=== PATIENT | male | born 1940 | race Caucasian/White ===

== ENCOUNTER 2018-03-03 13:36 | Emergency (ER) | payer MEDICARE, OTHER ==
[2018-03-03 13:59] VITALS: TEMP 99.1; BMI 29.2
[2018-03-03] MEDS ORDERED: METOPROLOL TARTRATE 50 MG TABLET (FP) PO ONE (15:40)
[2018-03-03] MEDS ORDERED: METOPROLOL TARTRATE 50 MG TABLET (FP) ONE (15:59)
[2018-03-03] MEDS ORDERED: ACETAMINOPHEN 1000 MG/100 ML VIAL (NON FORMULARY) IVPB ONE (16:16)
--- NOTE | 2018-03-03 16:16 | PDOC ---
History of Present Illness <Jerel Garrison - Last Filed: 03/03/18 17:07> - History of Present Illness Initial Comments: 03/03/18 16:12 "The patient is a 77 year old male with a significant PMH of HTN, hepatitis C, ascites, and prostate CA who presents to the emergency department for evaluation of dizziness and headache beginning earlier today. The patient states he intermittently has dizziness and headache, which he relates to his hypertension. Pt states that when he developed dizziness and a headache this morning, he called his home nurse. He states the nurse took his blood pressure and noted it to be high, after which she pressed the patients LifeAlert to call EMS. The patient notes he has had similar symptoms in the past on numerous occasions, all in the context of elevated BP. The patient reports compliance with his HTN medications. Pt denies thunderclap, denies neck stiffness. The patient denies chest pain, shortness of breath. Denies fever, chills, nausea, vomit, diarrhea and constipation. Denies dysuria, frequency, urgency and hematuria. Allergies: NKA Past surgical history: Cholecystectomy. TURP Social history: No reported cigarette, alcohol, or drug use. PCP: Dr. Kimmy Naqvi <Sandeep Tapia - Last Filed: 03/03/18 17:49> - General Chief Complaint: Blood Pressure Problem Stated Complaint: WEAKNESS,HTN Time Seen by Provider: 03/03/18 14:47 Past History <Jerel Garrison - Last Filed: 03/03/18 17:07> - Past Medical History Anemia: No Asthma: No Cancer: No Cardiac Disorders: No CVA: No COPD: No CHF: No Dementia: No Diabetes: No GI Disorders: Yes (GERD) HTN: Yes Hypercholesterolemia: No Liver Disease: Yes (HEPATITIS C, ENLARGED LIVE, ASCITIES) Seizures: No Thyroid Disease: No - Surgical History Cholecystectomy: Yes (CHOLECYSTECTOMY 1992, prostate vaporization) - Suicide/Smoking/Psychosocial Hx Smoking History: Never smoked Have you smoked in the past 12 months: No Information on smoking cessation initiated: No Hx Alcohol Use: No Drug/Substance Use Hx: No Substance Use Type: None Hx Substance Use Treatment: No <Sandeep Tapia - Last Filed: 03/03/18 17:49> - Past Medical History Allergies/Adverse Reactions: Allergies Allergy/AdvReac Type Severity Reaction Status Date / Time aspirin Allergy Verified 03/03/18 13:48 ciprofloxacin [From Cipro] Allergy Verified 03/03/18 13:48 ciprofloxacin HCl Allergy Verified 03/03/18 13:48 [From Cipro] penicillin G Allergy Verified 03/03/18 13:48 Home Medications: Ambulatory Orders Tamsulosin HCl 0.4 mg PO DAILY 02/03/13 Metoprolol Succinate [Toprol XL -] 100 mg PO DAILY 10/06/13 Acetaminophen [Tylenol .Regular Strength -] 650 mg PO Q6H PRN #0 tablet Lisinopril [Prinivil] 20 mg PO DAILY #0 tablet 09/18/14 Review of Systems - Review of Systems Comments:: 03/03/18 16:15 "GENERAL/CONSTITUTIONAL: No fever or chills. No weakness. HEAD, EYES, EARS, NOSE AND THROAT: No change in vision. No ear pain or discharge. No sore throat. CARDIOVASCULAR: No chest pain or shortness of breath. RESPIRATORY: No cough, wheezing, or hemoptysis. GASTROINTESTINAL: No nausea, vomiting, diarrhea or constipation. GENITOURINARY: No dysuria, frequency, or change in urination. MUSCULOSKELETAL: No joint or muscle swelling or pain. No neck or back pain. SKIN: No rash NEUROLOGIC: (+) Dizziness (+) Headache. No vertigo, loss of consciousness, or change in strength. ENDOCRINE: No increased thirst. No abnormal weight change. HEMATOLOGIC/LYMPHATIC: No anemia, easy bleeding, or history of blood clots. ALLERGIC/IMMUNOLOGIC: No hives or skin allergy. " <Sandeep Tapia - Last Filed: 03/03/18 17:49> *Physical Exam - Vital Signs Last Vital Signs Temp Pulse Resp BP Pulse Ox 99.1 F 94 H 16 180/91 100 03/03/18 13:39 03/03/18 13:39 03/03/18 13:39 03/03/18 16:03 03/03/18 13:39 <Jerel Garrison - Last Filed: 03/03/18 17:07> - Vital Signs Last Vital Signs Temp Pulse Resp BP Pulse Ox 99.1 F 94 H 16 180/91 100 03/03/18 13:39 03/03/18 13:39 03/03/18 13:39 03/03/18 16:03 03/03/18 13:39 - Physical Exam Comments: 03/03/18 16:15 "GENERAL: Awake, alert, and fully oriented, in no acute distress. HEAD: No signs of trauma EYES: PERRLA, EOMI, sclera anicteric, conjunctiva clear ENT: Auricles normal inspection, hearing grossly normal, nares patent, oropharynx clear without exudates. Moist mucosa NECK: Nontender, no stepoffs, Normal ROM, supple, no lymphadenopathy, JVD, or masses LUNGS: Breath sounds equal, clear to auscultation bilaterally. No wheezes, and no crackles HEART: Regular rate and rhythm, normal S1 and S2, no murmurs, rubs or gallops ABDOMEN: Soft, nontender, normoactive bowel sounds. No guarding, no rebound. No masses EXTREMITIES: Normal range of motion, no edema. No clubbing or cyanosis. No cords , erythema, or tenderness NEUROLOGICAL: Cranial nerves II through XII intact. 5/5 strength and sensation in all extremities, Normal speech, normal gait, normal cerebellar function SKIN: Warm, Dry, normal turgor, no rashes or lesions noted. " <Ou,Sandeep - Last Filed: 03/03/18 17:49> Heart Score/ECG Review - ECG Impressions Comment:: 03/03/18 16:16 NSR, no MARIN/STDs, no TWIs, axis wnl, intervals wnl, rate 87 <Ou,Sandeep - Last Filed: 03/03/18 17:49> ED Treatment Course - LABORATORY CBC & Chemistry Diagram: 03/03/18 15:15 03/03/18 15:15 - ADDITIONAL ORDERS Additional order review: Laboratory Results 03/03/18 15:15 Sodium 140 Potassium 4.1 Chloride 104 Carbon Dioxide 28 Anion Gap 8 BUN 12 Creatinine 0.9 Creat Clearance w eGFR > 60 Random Glucose 96 Calcium 9.5 Total Bilirubin 0.9 AST 29 D ALT 40 D Alkaline Phosphatase 76 Total Protein 8.3 H Albumin 4.1 03/03/18 15:15 RBC 4.75 MCV 90.0 MCHC 33.7 RDW 13.0 MPV 10.6 Neutrophils % 68.9 Lymphocytes % 23.0 Monocytes % 6.5 Eosinophils % 1.3 Basophils % 0.3 - Medications Given in the ED: ED Medications Discontinued Medications Generic Name Dose Route Start Last Admin Trade Name Freq PRN Reason Stop Dose Admin Acetaminophen 1,000 mg 03/03/18 16:16 03/03/18 16:44 Ofirmev Injection - IVPB 03/03/18 16:17 1,000 mg ONCE ONE Administration Metoprolol Tartrate 50 mg 03/03/18 15:40 03/03/18 16:04 Lopressor - PO 03/03/18 15:41 50 mg ONCE ONE Administration <Jerel Garrison - Last Filed: 03/03/18 17:07> - LABORATORY CBC & Chemistry Diagram: 03/03/18 15:15 03/03/18 15:15 - Medications Given in the ED: ED Medications Discontinued Medications Generic Name Dose Route Start Last Admin Trade Name Freq PRN Reason Stop Dose Admin Metoprolol Tartrate 50 mg 03/03/18 15:40 03/03/18 16:04 Lopressor - PO 03/03/18 15:41 50 mg ONCE ONE Administration <Sandeep Tapia - Last Filed: 03/03/18 17:49> Medical Decision Making - Medical Decision Making 03/03/18 16:47 77 M with mild headache and dizziness. Likely 2/2 elevated BP, as pt reports multiple instances of the same constellation of symptoms in the context of elevated BP. Pt with no neuro deficits and no red flags for SAH/meningitis or other serious intracranial process. - Labs - home dose metoprolol - Reassess 03/03/18 17:42 Repeat BP 164/92 Labs wnl Pt reassessed - now denies any complaints. No headache or dizziness. Pt is well appearing, with normal vitals. Clinically stable for DC at this time. I discussed the physical exam findings, ancillary test results and final diagnoses with the patient. I answered all of the patient's questions. The patient was satisfied with the care received and felt comfortable with the discharge plan and treatment plan. The patient agrees to follow up with the primary care physician within 24-72 hours. <Sandeep Tapia - Last Filed: 03/03/18 17:49> *DC/Admit/Observation/Transfer - Attestations Scribe Attestion: 03/03/18 17:07 Documentation prepared by Jerel Garrison, acting as medical associate for Sandeep Tapia MD. <Jerel Garrison - Last Filed: 03/03/18 17:07> - Attestations Physician Attestion: 03/03/18 17:48 I, Dr. Sandeep Tapia MD, attest that this document has been prepared under my direction and personally reviewed by me in its entirety. I further attest, that it accurately reflects all work, treatment, procedures and medical decision -making performed by me. <Sandeep Tapia - Last Filed: 03/03/18 17:49> Diagnosis at time of Disposition: HTN (hypertension) - Discharge Dispostion Disposition: HOME - Patient Instructions Printed Discharge Instructions: DI for High Blood Pressure Additional Instructions: You must follow up with your primary doctor to have your blood pressure re- checked. Uncontrolled blood pressure can lead to severe kidney or heart disease. If you experience recurrent headache, chest pain, shortness of breath, or any other concerning symptoms, return to the ER immediately. Otherwise, see your primary doctor within 1 week. Debe hacer un seguimiento con cheek mdico de cabecera para que se vuelva a controlar cheek presin arterial. La presin arterial no controlada puede provocar boni enfermedad renal o cardaca grave. Si experimenta dolor de lester recurrente, dolor de pecho, dificultad para respirar o cualquier otro sntoma preocupante, regrese a la shira de urgencias inmediatamente. De lo contrario, consulte a cheek mdico primario dentro de 1 semana.
[2018-03-03 16:38] LABS: BASO % 0.3 % (0-2.0); EOS % 1.3 % (0-4.5); HEMATOCRIT 42.8 % (35.4-49); HEMOGLOBIN 14.4 GM/dL (11.7-16.9); MCH 30.4 pg (25.7-33.7); MCHC 33.7 g/dl (32.0-35.9); MEAN PLT VOLUME 10.6 fl (7.5-11.1); MONO % 6.5 % (3.8-10.2); NEUT % 68.9 % (42.8-82.8); PLATELET COUNT 131 K/MM3 (134-434); RBC 4.75 M/mm3 (4.00-5.60); WHITE BLOOD COUNT 6.9 K/mm3 (4.0-10.0)
[2018-03-03] MEDS ORDERED: ACETAMINOPHEN INJECTION 100 ML IVPB ONE (16:39)
[2018-03-03 17:01] LABS: ALBUMIN 4.1 g/dl (3.4-5.0); ANION GAP 8 (8-16); BLOOD UREA NITROGEN 12 mg/dL (7-18); CALCIUM 9.5 mg/dL (8.5-10.1); CHLORIDE 104 mmol/L (98-107); CO2 28 mmol/L (21-32); CREATININE 0.9 mg/dL (0.7-1.3); GLUCOSE,RANDOM 96 mg/dL (74-106); POTASSIUM 4.1 mmol/L (3.5-5.1); SGOT/AST 29 U/L (15-37); SGPT/ALT 40 U/L (12-78); SODIUM 140 mmol/L (136-145)
[2018-03-03 17:02] LABS: ALK PHOS 76 U/L (45-117); BILIRUBIN,TOTAL 0.9 mg/dL (0.2-1.0); TOT PROT 8.3 g/dl (6.4-8.2)
[2018-03-03 19:04] VITALS: BP 160/90; PULSE 83
--- NOTE | 2018-03-04 15:37 | EKG ---
Test Reason : Blood Pressure : / mmHG Vent. Rate : 087 BPM Atrial Rate : 087 BPM P-R Int : 136 ms QRS Dur : 096 ms QT Int : 348 ms P-R-T Axes : 046 -03 075 degrees QTc Int : 418 ms NORMAL SINUS RHYTHM POSSIBLE LEFT ATRIAL ENLARGEMENT LEFT VENTRICULAR HYPERTROPHY NONSPECIFIC ST AND T WAVE ABNORMALITY ABNORMAL ECG WHEN COMPARED WITH ECG OF 03-JAN-2007 16:04, ST NOW DEPRESSED IN LATERAL LEADS T WAVE INVERSION NOW EVIDENT IN LATERAL LEADS Confirmed by ARTURO HYATT MD ([id number]) on 03/04/2018 3:36:55 PM Referred By: Confirmed By:ARTURO HYATT MD
== END 2018-03-03 18:50 | disposition home or self-care (01) ==
LOC: JER 13:36
PROC: 3E033NZ Introduction of Analgesics, Hypnotics, Sedatives into Peripheral Vein, Percutaneous Approach (ICD-10-PCS; principal; 2018-03-03)
DX: I10 Essential (primary) hypertension (principal); B19.20 Unspecified viral hepatitis C without hepatic coma; Z85.46 Personal history of malignant neoplasm of prostate
CPT/HCPCS: 36415; 80053; 82550; 84484; 85025; 93005; 93010; 99282-25; J0131

== ENCOUNTER 2018-10-26 10:31 | Day surgery (SDC) | payer MEDICARE, OTHER ==
[2018-10-26 14:54] VITALS: BP 147/73; PULSE 67; TEMP 98.2
== END 2018-10-26 12:50 | disposition home or self-care (01) ==
LOC: JASU-ENDO 10:31
PROVIDERS: ATTEND Internal Medicine Gastroenterology
PROC: 0DJ08ZZ Inspection of Upper Intestinal Tract, Via Natural or Artificial Opening Endoscopic (ICD-10-PCS; principal; 2018-10-26 11:00)
DX: Z13.89 Encounter for screening for other disorder (principal); I10 Essential (primary) hypertension; E11.9 Type 2 diabetes mellitus without complications; Z79.84 Long term (current) use of oral hypoglycemic drugs; B19.20 Unspecified viral hepatitis C without hepatic coma; R18.8 Other ascites

== ENCOUNTER 2019-08-13 12:08 | Observation (INO) | payer MEDICARE, OTHER ==
[2019-08-13 12:18] VITALS: BMI 27.4
--- NOTE | 2019-08-13 13:44 | PDOC ---
Attending Attestation - Resident Resident Name: Kwaku Yap - ED Attending Attestation I have performed the following: I have examined & evaluated the patient, The case was reviewed & discussed with the resident, I agree w/resident's findings & plan, Exceptions are as noted - HPI HPI: 08/13/19 14:17 Mr. Hector is a 79-year-old male history of HTN, DM, Prostate CA, and Alzheimer 's disease Patient accidentally took 2 of his Aricept tablets yesterday morning, instead of 1 in the morning and 1 in the afternoon Pt vomited right after taking the medication and was concerned about overdose. Today, pt was able to drink coffee with no nausea or vomiting Currently, pt is at his baseline Deneis CP, SOB, palpitations, REYES, changes in vision, weakness/numbness, calf tenderness, recent travel, sick contacts, changes in diet, fevers or chills. - Physicial Exam PE: 08/13/19 13:43 GENERAL: The patient is in no acute distress. ENT: Ears normal, nares patent, oropharynx clear without exudates. Moist mucous membranes. NECK: Normal range of motion, supple LUNGS: Breath sounds equal, clear to auscultation bilaterally. No wheezes, and no crackles. HEART:Regular rate and rhythm, normal S1 and S2 without murmur, rub or gallop. ABDOMEN: Soft, nontender, normoactive bowel sounds. EXTREMITIES: Normal range of motion, no edema. NEUROLOGICAL: Cranial nerves II through XII grossly intact. Normal speech. No focal neurological deficits. SKIN: Warm, Dry, normal turgor, no rashes or lesions noted. - Medical Decision Making 08/13/19 14:23 79-year-old male presents emergency department due to accidentally taking too much Aricept yesterday, he took 2 pills instead of one in the morning Currently has no GI upset Is at his baseline We will do: Labs EKG DC home Patient is notably hypertensive Does not take his Norvasc We will give that now We will reassess 08/13/19 16:04 Laboratory Tests 08/13/19 08/13/19 13:55 13:55 WBC 7.1 Hgb 15.4 Hct 46.2 Plt Count 132 L BUN 10.3 Creatinine 1.0 Creatine Kinase 109 Troponin I < 0.02 EKG: NSR rat of 78 bpm, axis nml, intervals nml, no st elevation, t wave inversion I, aVL, lone new v6 biphasic t wave T wave different than prior Will admit for monitoring of labs and ekg Pt accepted to tele by PMD Pt initially agreeable to stay in the hospital Pt and son deciding to leave AMA Pt was supposed to go to [place] [facility], pt trip cancelled Note: The patient insists on leaving the emergency dept and is signing out against medical advice. The patient understands the risks and complications that may result from the refusal of medical care and admission which includes and permanent disability. The patient has the mental capacity of understanding the risks of refusing care and is capable of making an informed decision. The patient was instructed to return to the emergency department should he change his mind regarding medical care or should his condition worsen. The patient signed the Against Medical Advice form.
[2019-08-13] MEDS ORDERED: amLODIPine BESYLATE 10 MG TABLET (FP) PO ONE (13:45)
--- NOTE | 2019-08-13 13:58 | PDOC ---
History of Present Illness - General Chief Complaint: Overdose Stated Complaint: NAUSEA/VOMITING Time Seen by Provider: 08/13/19 13:26 History Source: Patient, Family (son) Exam Limitations: No Limitations - History of Present Illness Initial Comments: 08/13/19 13:51 79 yo male pmh HTN, DM, Prostate CA presents to the ED for NB/NB vomiting after taking 10 mg of aricept yesterday. Pt son at bedside and provides added history. States home energy consultant gave two 5 mg tablets of aricept yesterday at the same time instead of 1 in the morning and 1 at night, pt vomited right after taking the medication and was concerned about overdose. Today, pt drank coffee, no nausea or vomiting and feels at baseline health. Pt has a flight today to go [place] 1 [place] and wants to make sure he is healthy enough to go. Deneis CP, SOB, palpitations, REYES, changes in vision, weakness on 1 side of his body, calf tenderness, recent travel, sick contacts, changes in diet, F/Cm abdominal pain, changes in bowel or bladder habits Past History - Past Medical History Allergies/Adverse Reactions: Allergies Allergy/AdvReac Type Severity Reaction Status Date / Time aspirin Allergy Verified 08/13/19 12:17 ciprofloxacin [From Cipro] Allergy Verified 08/13/19 12:17 ciprofloxacin HCl Allergy Verified 08/13/19 12:17 [From Cipro] penicillin G Allergy Verified 08/13/19 12:17 Home Medications: Ambulatory Orders Metoprolol Succinate [Toprol XL -] 100 mg PO DAILY 10/06/13 Amlodipine Besylate [Norvasc -] 5 mg PO DAILY 10/26/18 Donepezil HCl 5 mg PO DAILY 10/26/18 Oxybutynin Chloride [Ditropan Xl] 10 mg PO DAILY 10/26/18 metFORMIN HCL [Metformin HCl ER] 500 mg PO DAILY 10/26/18 Anemia: No Asthma: No Cancer: No Cardiac Disorders: No CVA: No COPD: No CHF: No Dementia: No Diabetes: Yes GI Disorders: Yes (GERD) HTN: Yes Hypercholesterolemia: No Liver Disease: Yes (HEPATITIS C, ENLARGED LIVE, ASCITIES,NALD CIRRHOSIS) Seizures: No Thyroid Disease: No - Surgical History Cholecystectomy: Yes (CHOLECYSTECTOMY 1992, prostate vaporization) - Psycho Social/Smoking Cessation Hx Smoking History: Never smoked Have you smoked in the past 12 months: No Hx Alcohol Use: No Drug/Substance Use Hx: No Substance Use Type: None Hx Substance Use Treatment: No Review of Systems - Review of Systems Constitutional: No: Chills, Fever Respiratory: No: Shortness of Breath Cardiac (ROS): No: Chest Pain, Edema ABD/GI: Yes: Vomiting (resolved yesterday). No: Constipated, Diarrhea, Nausea : No: Burning, Dysuria, Frequency, Flank Pain Musculoskeletal: No: Back Pain, Muscle Weakness Neurological: No: Headache, Numbness, Paresthesia, Weakness *Physical Exam - Vital Signs Last Vital Signs Temp Pulse Resp BP Pulse Ox 98 F 60 18 199/93 H 99 08/13/19 12:14 08/13/19 12:14 08/13/19 12:14 08/13/19 12:14 08/13/19 12:14 - Physical Exam General Appearance: Yes: Nourished, Appropriately Dressed. No: Apparent Distress HEENT: positive: EOMI. negative: Excessive drooling Neck: positive: Supple. negative: Carotid bruit Respiratory/Chest: positive: Lungs Clear, Normal Breath Sounds. negative: Respiratory Distress, Accessory Muscle Use, Crackles, Rales, Rhonchi, Stridor, Wheezing Cardiovascular: positive: Regular Rhythm, Regular Rate, S1, S2. negative: Edema , JVD, Murmur Vascular Pulses: Dorsalis-Pedis (R): 4+, Doralis-Pedis (L): 4+ Gastrointestinal/Abdominal: positive: Flat, Soft. negative: Pulsatile Mass, Distended, Guarding, Rebound, Tenderness Musculoskeletal: negative: CVA Tenderness Extremity: positive: Normal Capillary Refill, Normal Inspection, Normal Range of Motion Integumentary: positive: Normal Color, Dry, Warm Neurologic: positive: hotel breakfast attendant II-XII NML intact, Fully Oriented, Alert, Normal Mood/ Affect, Normal Response, Motor Strength 5/5. negative: Facial Droop, Sensory Deficit, Confused, Disoriented ED Treatment Course - LABORATORY CBC & Chemistry Diagram: 08/13/19 13:55 08/13/19 13:55 - RADIOLOGY Radiology Studies Ordered: Category Date Time Status CHEST PA & LAT [RAD] Stat Radiology 08/13/19 13:50 Ordered Medical Decision Making - Medical Decision Making 11/23/19 13:58 79 yo male pmh HTN, DM, Prostate CA presents to the ED for NB/NB vomiting after taking 10 mg of aricept yesterday. Pt son at bedside and provides added history. States home energy consultant gave two 5 mg tablets of aricept yesterday at the same time instead of 1 in the morning and 1 at night, pt vomited right after taking the medication and was concerned about overdose. Today, pt drank coffee, no nausea or vomiting and feels at baseline health. Pt has a flight today to go [place] 1 [place] and wants to make sure he is healthy enough to go. Deneis CP, SOB, palpitations, REYES, changes in vision, weakness on 1 side of his body, calf tenderness, recent travel, sick contacts, changes in diet, F/Cm abdominal pain, changes in bowel or bladder habits Vitals shows elevated BP 199 systolic, otherwise wnl Pt is on lisinopril and norvasc for BP however did not take Norvasc today (has pills at the bedside prescribed to him but does not believe he should be taking them) DDX INLT: food poisoning, viral gastritis, ACS Will give home dosed Norvasc 10 mg, check basic labs, EKG and CXR and make sure pt is able to eat/drink 08/13/19 16:[address] Ayon, agree to admission to Tele obs with Dr. Harp 08/13/19 18:12 Pt states he will no longer stay in the hospital. Pt AOX3, has full capacity and signs out ama despite being told he may as a result of not being monitored in the hospital and treated. given information on Cardiology f/u with Dr. Harp Discharge - Discharge Information Problems reviewed: Yes Clinical Impression/Diagnosis: Ruled out for myocardial infarction Condition: Stable Disposition: AGAINST MEDICAL ADVICE - Admission Yes - Follow up/Referral - Patient Discharge Instructions - Post Discharge Activity
[2019-08-13] MEDS ORDERED: amLODIPine BESYLATE 5 MG TABLET (FP) ONE (14:03)
[2019-08-13 14:19] LABS: BASO % 0.4 % (0-2.0); EOS % 0.5 % (0-4.5); HEMATOCRIT 46.2 % (35.4-49); HEMOGLOBIN 15.4 GM/dL (11.7-16.9); LYMPH % 23.3 % (8-40); MCH 30.3 pg (25.7-33.7); MCHC 33.4 g/dl (32.0-35.9); MEAN CELL VOLUME 90.9 fl (80-96); MEAN PLT VOLUME 10.7 fl (7.5-11.1); MONO % 5.7 % (3.8-10.2); NEUT % 70.1 % (42.8-82.8); PLATELET COUNT 132 K/MM3 (134-434); RBC 5.08 M/mm3 (4.00-5.60); RDW 12.7 % (11.9-15.9); WHITE BLOOD COUNT 7.1 K/mm3 (4.0-10.0)
[2019-08-13 14:40] LABS: ALK PHOS 78 U/L (45-117); ANION GAP 5 MMOL/L (8-16); BILIRUBIN,TOTAL 1.2 mg/dL (0.2-1); BLOOD UREA NITROGEN 10.3 mg/dL (7-18); CALCIUM 9.8 mg/dL (8.5-10.1); CHLORIDE 106 mmol/L (98-107); CO2 30 mmol/L (21-32); GLUCOSE,RANDOM 106 mg/dL (74-106); POTASSIUM 4.1 mmol/L (3.5-5.1); SGOT/AST 34 U/L (15-37); SGPT/ALT 43 U/L (13-61); SODIUM 142 mmol/L (136-145); TOT PROT 7.8 g/dl (6.4-8.2)
[2019-08-13] MEDS ORDERED: MAG HYDROX/AL HYDROX/SIMETH 30 ML UNIT-DOSE CUP ONE (14:45)
[2019-08-13] MEDS ORDERED: FAMOTIDINE 20 MG/50 ML IVPB 20 MG/50 ML MG IVPB ONE (14:45)
[2019-08-13] MEDS ORDERED: METOCLOPRAMIDE HCL INJECTION 10 MG/2 ML VIAL ONE (14:45)
[2019-08-13 17:09] VITALS: BP 188/97; PULSE 87; TEMP 98.1
--- NOTE | 2019-08-14 09:26 | HP ---
Admitting History and Physical - Primary Care Physician PCP: Ihsan Naqvi - Admission History of Present Illness: signed out AMA prior to being seen - Past Medical History Cardiovascular: Yes: HTN Gastrointestinal: Yes: Ascites, GERD Hepatobiliary: Yes: Hepatitis C Renal/: Yes: Cancer, Hematuria, UTI Heme/Onc: Yes: Anemia - Smoking History Smoking history: Never smoked Have you smoked in the past 12 months: No - Alcohol/Substance Use Hx Alcohol Use: No Home Medications - Allergies Allergies/Adverse Reactions: Allergies Allergy/AdvReac Type Severity Reaction Status Date / Time aspirin Allergy Verified 08/13/19 12:17 ciprofloxacin [From Cipro] Allergy Verified 08/13/19 12:17 ciprofloxacin HCl Allergy Verified 08/13/19 12:17 [From Cipro] penicillin G Allergy Verified 08/13/19 12:17 - Home Medications Home Medications: Ambulatory Orders Metoprolol Succinate [Toprol XL -] 100 mg PO DAILY 10/06/13 Amlodipine Besylate [Norvasc -] 5 mg PO DAILY 10/26/18 Donepezil HCl 5 mg PO DAILY 10/26/18 Oxybutynin Chloride [Ditropan Xl] 10 mg PO DAILY 10/26/18 metFORMIN HCL [Metformin HCl ER] 500 mg PO DAILY 10/26/18 Physical Examination Vital Signs: Vital Signs Temperature 98.1 F 08/13/19 17:08 Pulse Rate 87 08/13/19 17:08 Respiratory Rate 20 08/13/19 17:08 Blood Pressure 188/97 H 08/13/19 17:08 O2 Sat by Pulse Oximetry (%) 95 08/13/19 17:08 Labs: CBC, BMP 08/13/19 13:55 08/13/19 13:55
--- NOTE | 2019-08-14 09:27 | DS ---
Physical Examination Vital Signs: Vital Signs Temperature 98.1 F 08/13/19 17:08 Pulse Rate 87 08/13/19 17:08 Respiratory Rate 20 08/13/19 17:08 Blood Pressure 188/97 H 08/13/19 17:08 O2 Sat by Pulse Oximetry (%) 95 08/13/19 17:08 Labs: CBC, BMP 08/13/19 13:55 08/13/19 13:55 Discharge Summary Problems reviewed: Yes Reason For Visit: RULED OUT FOR MYOCARDIAL INFARCTION Current Active Problems Ruled out for myocardial infarction (Acute) Condition: Stable - Instructions Referrals: Ihsan Naqvi MD [Primary Care Provider] - Disposition: AGAINST MEDICAL ADVICE - Home Medications Comprehensive Discharge Medication List: Ambulatory Orders Metoprolol Succinate [Toprol XL -] 100 mg PO DAILY 10/06/13 Amlodipine Besylate [Norvasc -] 5 mg PO DAILY 10/26/18 Donepezil HCl 5 mg PO DAILY 10/26/18 Oxybutynin Chloride [Ditropan Xl] 10 mg PO DAILY 10/26/18 metFORMIN HCL [Metformin HCl ER] 500 mg PO DAILY 10/26/18
[2019-08-14] MEDS ORDERED: amLODIPine BESYLATE 10 MG TABLET (FP) PO SCH (10:00)
[2019-08-14] MEDS ORDERED: SOLIFENACIN SUCCINATE 5 MG TAB PO SCH (10:00)
--- NOTE | 2019-08-14 13:40 | EKG ---
Test Reason : Blood Pressure : / mmHG Vent. Rate : 078 BPM Atrial Rate : 078 BPM P-R Int : 140 ms QRS Dur : 092 ms QT Int : 354 ms P-R-T Axes : 032 -05 098 degrees QTc Int : 403 ms NORMAL SINUS RHYTHM VOLTAGE CRITERIA FOR LEFT VENTRICULAR HYPERTROPHY NONSPECIFIC T WAVE ABNORMALITY ABNORMAL ECG WHEN COMPARED WITH ECG OF 03-MAR-2018 14:11, NO SIGNIFICANT CHANGE WAS FOUND Confirmed by MD Kiah, Brad ([id number]) on 08/14/2019 1:40:19 PM Referred By: Confirmed By:Brad Dupont MD
== END 2019-08-13 17:45 | disposition left against medical advice (07) ==
LOC: JER 12:08 → INTOOBSV 16:35 → JERBED 16:35
PROVIDERS: ADMIT Internal Medicine; ATTEND Internal Medicine
DX: T44.1X1A Poisoning by other parasympathomimetics [cholinergics], accidental (unintentional), initial encounter (principal); R11.2 Nausea with vomiting, unspecified; I10 Essential (primary) hypertension; Y92.9 Unspecified place or not applicable; E11.9 Type 2 diabetes mellitus without complications; G30.9 Alzheimer's disease, unspecified; F02.80 Dementia in other diseases classified elsewhere, unspecified severity, without behavioral disturbance, psychotic disturbance, mood disturbance, and anxiety; K21.9 Gastro-esophageal reflux disease without esophagitis; K74.60 Unspecified cirrhosis of liver; Z85.46 Personal history of malignant neoplasm of prostate; Z88.0 Allergy status to penicillin; Z88.1 Allergy status to other antibiotic agents; Z88.6 Allergy status to analgesic agent; Z79.84 Long term (current) use of oral hypoglycemic drugs
CPT/HCPCS: 36415; 71046-TC-FY; 80053; 82550; 84484; 85025; 93005; 93010; 99284-25; G0378

== ENCOUNTER 2019-08-17 23:15 | Inpatient (IN) | payer MEDICARE, OTHER ==
--- NOTE | 2019-08-17 23:20 | PDOC ---
Attending Attestation - Resident Resident Name: Kwaku Yap - ED Attending Attestation I have performed the following: I have examined & evaluated the patient, The case was reviewed & discussed with the resident, I agree w/resident's findings & plan - HPI HPI: 08/17/19 23:19 Pt comes with weakness and stroke alert. - Physicial Exam PE: 08/17/19 23:55 Pt follows commands and he has equal reflexes throughout and downgoing babinskis. He has a normal heart and lungs. Abdominal exam is normal bowel sounds. Pt has old ventral surgical scar with hernia/ - Medical Decision Making 08/17/19 23:57 Pt will be admitted and he will have MRI in the AM Pt feels febrile. We are awaiting rectal temp 08/18/19 00:10 Patient Name: ORTIZ BYRNES THIS IS A PRELIMINARY REPORT FROM [facility] DATE OF SERVICE: 2019-08-17 23:26:55 IMAGES: [id number] EXAM: HEAD CT WITHOUT CONTRAST HISTORY: Rule out stroke COMPARISON: None. FINDINGS: The clinically suspected infarct is not detectable on CT at this time. Chronic microvascular changes noted. Involutional changes noted. The falx and tentorial leaflets are symmetrically dense. This most likely represents a combination of vascularity and calcification but prior scans would be most helpful to confirm this. No visible mass. No shift or herniation. 08/18/19 00:12 CBC is normal; CT normal Pt will be admitted Dr. Gutierrez of neuro is aware of the patient. 08/18/19 00:40 Chem is normal
[2019-08-17] MEDS ORDERED: NITROGLYCERIN SUBLINGUAL 1/150 0.4 MG TAB SL ONE (23:48)
[2019-08-17] MEDS ORDERED: ACETAMINOPHEN 1000 MG/100 ML VIAL (NON FORMULARY) IVPB ONE (23:55)
[2019-08-17 23:56] LABS: BASO % 0.3 % (0-2.0); EOS % 2.9 % (0-4.5); HEMATOCRIT 44.3 % (35.4-49); HEMOGLOBIN 14.6 GM/dL (11.7-16.9); LYMPH % 33.1 % (8-40); MCH 30.2 pg (25.7-33.7); MCHC 32.9 g/dl (32.0-35.9); MEAN CELL VOLUME 91.8 fl (80-96); MEAN PLT VOLUME 10.5 fl (7.5-11.1); NEUT % 56.7 % (42.8-82.8); PLATELET COUNT 135 K/MM3 (134-434); RBC 4.82 M/mm3 (4.00-5.60); RDW 12.9 % (11.9-15.9); WHITE BLOOD COUNT 6.9 K/mm3 (4.0-10.0)
--- NOTE | 2019-08-17 23:57 | PDOC ---
History of Present Illness - General Chief Complaint: CVA/TIA Stated Complaint: POSSIBLE STROKE Time Seen by Provider: 08/17/19 23:17 History Source: Patient, Family (son) Exam Limitations: No Limitations - History of Present Illness Initial Comments: 08/18/19 01:13 79 yo male pmh dementia and htn presents to the ED for sudden onset REYES with slurred speech, R facial droop, numbness and confusion. Son present, states the symptoms began around 11 pm and called EMS. Pt has no stroke or TX hx, denies AC , denies arrhythmia, denies CP, palpitations, SOB, recent illness, F/C/N/V, abdominal pain. NIH Stroke Scale - Last Known Well Date/Time & Onset Date Last Known Well: 08/17/19 Time Last Known Well: 23:00 - Initial Evaluation Level of consciousness: Alert Ask patient the month and their age: Answers both correctly Ask patient to open & close eyes; make fist and let go: Obeys both correctly Best gaze (horizontal eye movement): Normal Visual field testing: No visual field loss Facial paresis (Show teeth/raise eyebrows/close eyes tight): Minor paralysis ( flattened nasolabial fold, asymmetry on smiling) Motor Function: Left Arm: Normal Motor Function: Right Arm: Normal (extends arm 90 (or 45) degrees for 10 seconds without drift Motor Function: Left Leg: Normal (extends leg 30 degrees for 5 seconds without drift) Motor Function: Right Leg: Normal (extends leg 30 degrees for 5 seconds without drift) Limb Ataxia: No ataxia Sensory(Use pinprick test arms,legs,trunk,face/side to side): Normal Best language (Describe picture, name items, read sentences): No Aphasia Dysarthria (read several words): Mild to moderate slurring of words Extinction and Inattention: No abnormality - Total Score NIH Stroke Scale Score: 2 Past History - Past Medical History Allergies/Adverse Reactions: Allergies Allergy/AdvReac Type Severity Reaction Status Date / Time aspirin Allergy Verified 08/13/19 12:17 ciprofloxacin [From Cipro] Allergy Verified 08/13/19 12:17 ciprofloxacin HCl Allergy Verified 08/13/19 12:17 [From Cipro] penicillin G Allergy Verified 08/13/19 12:17 Home Medications: Ambulatory Orders Metoprolol Succinate [Toprol XL -] 100 mg PO DAILY 10/06/13 Amlodipine Besylate [Norvasc -] 10 mg PO DAILY 10/26/18 Donepezil HCl 10 mg PO BID 10/26/18 Oxybutynin Chloride [Ditropan Xl] 10 mg PO DAILY 10/26/18 metFORMIN HCL [Metformin HCl ER] 500 mg PO DAILY 10/26/18 Desmopressin Acetate [Ddavp -] 0.2 mg PO DAILY 08/18/19 Lisinopril [Prinivil -] 40 mg PO DAILY 08/18/19 Solifenacin Succinate 5 mg PO DAILY 08/18/19 Anemia: No Asthma: No Cancer: No Cardiac Disorders: No CVA: No COPD: No CHF: No Dementia: No Diabetes: Yes GI Disorders: Yes (GERD) HTN: Yes Hypercholesterolemia: No Liver Disease: Yes (HEPATITIS C, ENLARGED LIVE, ASCITIES,NALD CIRRHOSIS) Seizures: No Thyroid Disease: No - Surgical History Cholecystectomy: Yes (CHOLECYSTECTOMY 1992, prostate vaporization) - Psycho Social/Smoking Cessation Hx Smoking History: Never smoked Have you smoked in the past 12 months: No Information on smoking cessation initiated: No Hx Alcohol Use: No Drug/Substance Use Hx: No Substance Use Type: None Hx Substance Use Treatment: No *Physical Exam - Vital Signs Last Vital Signs Temp Pulse Resp BP Pulse Ox 97.8 F 64 16 193/101 H 97 08/17/19 23:15 08/17/19 23:15 08/17/19 23:15 08/17/19 23:55 08/17/19 23:15 ED Treatment Course - LABORATORY CBC & Chemistry Diagram: 08/17/19 23:40 08/17/19 23:40 - RADIOLOGY Radiology Studies Ordered: Category Date Time Status HEAD CT WITHOUT CONTRAST [CT] Stat CT Scan 08/17/19 23:17 Ordered CHEST X-RAY PORTABLE* [RAD] Stat Radiology 08/17/19 23:30 Ordered Medical Decision Making - Medical Decision Making 79 yo male pmh dementia and htn presents to the ED for sudden onset REYES with slurred speech, R facial droop, numbness and confusion. Son present, states the symptoms began around 11 pm and called EMS. Pt has no stroke or TX hx, denies AC , denies arrhythmia, denies CP, palpitations, SOB, recent illness, F/C/N/V, abdominal pain. Vitals show elevated BP 200s systolic 08/17/19 23:[address] Gutierrez in Neurology, due to minor deficits pt should not have TPA. Should allow permissive HTN to 220 systolic and pt will be admitted to stroke floor with MRI in the am Pt allergic to ASA. Discussed case with MANJU Posey who agrees to accept pt to stroke floor Discharge - Discharge Information Problems reviewed: Yes Clinical Impression/Diagnosis: Cerebrovascular accident (CVA), Transient ischemic attack Condition: Stable - Admission Yes - Follow up/Referral Referrals: Ihsan Naqvi MD [Primary Care Provider] - - Patient Discharge Instructions - Post Discharge Activity
[2019-08-18] MEDS ORDERED: ACETAMINOPHEN INJECTION 100 ML IVPB ONE (00:08)
[2019-08-18] MEDS ORDERED: NITROGLYCERIN 2% OINTMENT - 1GM PACKET TD ONE (00:08)
[2019-08-18 00:22] LABS: CHOLESTEROL 177 mg/dL (50-200); HDL CHOLESTEROL 56 mg/dL (40-60); LDL CHOLESTEROL (ONLY SJRH) 100 mg/dL (5-100); TRIGLYCERIDES 98 mg/dL (0-150)
[2019-08-18] MEDS: NITROGLYCERIN 2% OINTMENT - 1GM PACKET TD ONE ×2 (00:23→00:41)
[2019-08-18 00:30] LABS: INR 1.02 (0.83-1.09)
[2019-08-18 00:31] LABS: ALBUMIN 3.9 g/dl (3.4-5.0); ALK PHOS 76 U/L (45-117); ANION GAP 7 MMOL/L (8-16); BLOOD UREA NITROGEN 14.4 mg/dL (7-18); CALCIUM 9.3 mg/dL (8.5-10.1); CHLORIDE 105 mmol/L (98-107); CO2 30 mmol/L (21-32); GLUCOSE,RANDOM 101 mg/dL (74-106); PHOSPHOROUS 3.1 mg/dL (2.5-4.9); POTASSIUM 3.8 mmol/L (3.5-5.1); SGOT/AST 32 U/L (15-37); SGPT/ALT 44 U/L (13-61); SODIUM 142 mmol/L (136-145); TOT PROT 7.4 g/dl (6.4-8.2)
[2019-08-18 00:32] LABS: ACTIVATED PTT 36.2 SECONDS (25.2-36.5)
[2019-08-18 00:40] LABS: EPI CELLS 0.8 /HPF (0-5/HPF); HYALINE CASTS 2 /lpf (0-8); PH,URINE 5.5 (5.0-8.0); URINE APPEARANCE CLEAR; URINE BACTERIA 0.7 /hpf (NEGATIVE); URINE BILIRUBIN NEGATIVE (NEGATIVE); URINE COLOR YELLOW; URINE GLUCOSE (UA) NEGATIVE (NEGATIVE); URINE KETONE NEGATIVE (NEGATIVE); URINE LEUK ESTERASE NEGATIVE (NEGATIVE); URINE NITRITE NEGATIVE (NEGATIVE); URINE PROTEIN 2+ (NEGATIVE); URINE RBC 1 /hpf (0-4); URINE WBC 2 /hpf (0-5)
--- NOTE | 2019-08-18 01:14 | HP ---
Admitting History and Physical - Primary Care Physician PCP: Ihsan Naqvi - Admission Chief Complaint: Headache, Slurred Speech, Facial Droop History of Present Illness: This is a 79 y/o man with a PMHx of Dementia, HTN. Who presents to the ED for sudden onset REYES with slurred speech, R facial droop, numbness and confusion. Patient is Cymro speaking and has Dementia. He is unable to provide HPI. Per ED record: Patient's son presents, states "the symptoms began around 11 pm and called EMS". Patient has no stroke or SC hx, denies AC, denies arrhythmia, denies CP, palpitations, SOB, recent illness, F/C/N/V, abdominal pain. ED course was noted for: (1) Head CT- the clinically suspected infarct is not detectable. Chronic microvascular changes noted. Involutional changes noted. The Falx and tentorial leaflets are symmetrically dense. most likely represnts a combination of vascularity and calcification. No visible mass. 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 Cardiovascular: Yes: HTN Gastrointestinal: Yes: Ascites, GERD Hepatobiliary: Yes: Hepatitis C Renal/: Yes: Cancer, Hematuria, UTI Heme/Onc: Yes: Anemia - Smoking History Smoking history: Never smoked Have you smoked in the past 12 months: No - Alcohol/Substance Use Hx Alcohol Use: No History of Substance Use: reports: None - Social History Usual Living Arrangement: Yes: With Child ADL: Family Assistance History of Recent Travel: No Home Medications - Allergies Allergies/Adverse Reactions: Allergies Allergy/AdvReac Type Severity Reaction Status Date / Time aspirin Allergy Verified 08/13/19 12:17 ciprofloxacin [From Cipro] Allergy Verified 08/13/19 12:17 ciprofloxacin HCl Allergy Verified 08/13/19 12:17 [From Cipro] penicillin G Allergy Verified 08/13/19 12:17 - Home Medications Home Medications: Ambulatory Orders Metoprolol Succinate [Toprol XL -] 100 mg PO DAILY 10/06/13 Amlodipine Besylate [Norvasc -] 10 mg PO DAILY 10/26/18 Donepezil HCl 10 mg PO BID 10/26/18 Oxybutynin Chloride [Ditropan Xl] 10 mg PO DAILY 10/26/18 metFORMIN HCL [Metformin HCl ER] 500 mg PO DAILY 10/26/18 Desmopressin Acetate [Ddavp -] 0.2 mg PO DAILY 08/18/19 Lisinopril [Prinivil -] 40 mg PO DAILY 08/18/19 Solifenacin Succinate 5 mg PO DAILY 08/18/19 Family Medical History Family History: Unable to Obtain Review of Systems Unable to obtain ROS, reason: Dementia Physical Examination Vital Signs: Vital Signs Temperature 98.8 F 08/17/19 23:53 Pulse Rate 60 08/18/19 00:40 Respiratory Rate 18 08/18/19 00:40 Blood Pressure 149/77 08/18/19 00:40 O2 Sat by Pulse Oximetry (%) 99 08/18/19 00:40 Constitutional: Yes: Well Nourished, No Distress, Calm, Other ([place]) Eyes: Yes: WNL, Conjunctiva Clear, EOM Intact, PERRL HENT: Yes: WNL, Atraumatic, Normocephalic Neck: Yes: WNL, Supple, Trachea Midline Cardiovascular: Yes: WNL, Regular Rate and Rhythm, S1, S2 Respiratory: Yes: WNL, Regular, CTA Bilaterally Gastrointestinal: Yes: WNL, Normal Bowel Sounds, Soft ...Rectal Exam: Yes: WNL Renal/: Yes: WNL Breast(s): Yes: WNL Musculoskeletal: Yes: WNL Extremities: Yes: WNL Edema: No Peripheral Pulses WNL: Yes Integumentary: Yes: WNL Neurological: Yes: Alert (to name and ), Confusion, Cran Nerves II-XII Intact ...Motor Strength: WNL Psychiatric: Yes: Alert Labs: CBC, BMP 08/17/19 23:40 08/17/19 23:40 Laboratory Results - last 24 hr 08/17/19 08/17/19 08/17/19 23:40 23:40 23:40 WBC 6.9 RBC 4.82 Hgb 14.6 Hct 44.3 MCV 91.8 MCH 30.2 MCHC 32.9 RDW 12.9 Plt Count 135 MPV 10.5 Absolute Neuts (auto) 3.9 Neutrophils % 56.7 Lymphocytes % 33.1 D Monocytes % 7.0 Eosinophils % 2.9 D Basophils % 0.3 Nucleated RBC % 0 PT with INR INR PTT (Actin FS) Sodium 142 Potassium 3.8 Chloride 105 Carbon Dioxide 30 Anion Gap 7 L BUN 14.4 Creatinine 1.0 Est GFR (CKD-EPI)AfAm 82.60 Est GFR (CKD-EPI)NonAf 71.27 POC Glucometer Random Glucose 101 Hemoglobin A1c % Calcium 9.3 Phosphorus 3.1 Magnesium 2.0 Total Bilirubin 1.0 AST 32 ALT 44 Alkaline Phosphatase 76 Ammonia Creatine Kinase 99 Troponin I < 0.02 Total Protein 7.4 Albumin 3.9 Triglycerides 98 Cholesterol 177 Total LDL Cholesterol 100 HDL Cholesterol 56 TSH 1.73 D Urine Color Urine Appearance Urine pH Ur Specific [place] Urine Protein Urine Glucose (UA) Urine Ketones Urine Blood Urine Nitrite Urine Bilirubin Urine Urobilinogen Ur Leukocyte Esterase Urine WBC (Auto) Urine RBC (Auto) Urine Casts (Auto) U Epithel Cells (Auto) Urine Bacteria (Auto) 08/17/19 08/17/19 08/18/19 23:40 23:47 00:20 WBC RBC Hgb Hct MCV MCH MCHC RDW Plt Count MPV Absolute Neuts (auto) Neutrophils % Lymphocytes % Monocytes % Eosinophils % Basophils % Nucleated RBC % PT with INR 12.00 INR 1.02 PTT (Actin FS) 36.2 Sodium Potassium Chloride Carbon Dioxide Anion Gap BUN Creatinine Est GFR (CKD-EPI)AfAm Est GFR (CKD-EPI)NonAf POC Glucometer Random Glucose Hemoglobin A1c % Calcium Phosphorus Magnesium Total Bilirubin AST ALT Alkaline Phosphatase Ammonia < 10.00 L Creatine Kinase Troponin I Total Protein Albumin Triglycerides Cholesterol Total LDL Cholesterol HDL Cholesterol TSH Urine Color Yellow Urine Appearance Clear Urine pH 5.5 Ur Specific [place] 1.015 Urine Protein 2+ H Urine Glucose (UA) Negative Urine Ketones Negative Urine Blood Negative Urine Nitrite Negative Urine Bilirubin Negative Urine Urobilinogen 1.0 Ur Leukocyte Esterase Negative Urine WBC (Auto) 2 Urine RBC (Auto) 1 Urine Casts (Auto) 2 U Epithel Cells (Auto) 0.8 Urine Bacteria (Auto) 0.7 08/18/19 01:37 WBC RBC Hgb Hct MCV MCH MCHC RDW Plt Count MPV Absolute Neuts (auto) Neutrophils % Lymphocytes % Monocytes % Eosinophils % Basophils % Nucleated RBC % PT with INR INR PTT (Actin FS) Sodium Potassium Chloride Carbon Dioxide Anion Gap BUN Creatinine Est GFR (CKD-EPI)AfAm Est GFR (CKD-EPI)NonAf POC Glucometer 113 Random Glucose Hemoglobin A1c % Calcium Phosphorus Magnesium Total Bilirubin AST ALT Alkaline Phosphatase Ammonia Creatine Kinase Troponin I Total Protein Albumin Triglycerides Cholesterol Total LDL Cholesterol HDL Cholesterol TSH Urine Color Urine Appearance Urine pH Ur Specific [place] Urine Protein Urine Glucose (UA) Urine Ketones Urine Blood Urine Nitrite Urine Bilirubin Urine Urobilinogen Ur Leukocyte Esterase Urine WBC (Auto) Urine RBC (Auto) Urine Casts (Auto) U Epithel Cells (Auto) Urine Bacteria (Auto) Radiology Testin08/18/19 00:10 Patient Name: ORTIZ BYRNES THIS IS A PRELIMINARY REPORT FROM [facility] DATE OF SERVICE: 2019-08-17 23:26:55 IMAGES: 249 EXAM: HEAD CT WITHOUT CONTRAST HISTORY: Rule out stroke COMPARISON: None. FINDINGS: The clinically suspected infarct is not detectable on CT at this time. Chronic microvascular changes noted. Involutional changes noted. The falx and tentorial leaflets are symmetrically dense. This most likely represents a combination of vascularity and calcification but prior scans would be most helpful to confirm this. No visible mass. No shift or herniation. Imaging - Results Chest X-ray: Report Reviewed, Image Reviewed Cat Scan: Report Reviewed, Image Reviewed EKG: Image Reviewed Problem List - Problems (1) Transient ischemic attack Code(s): G45.9 - TRANSIENT CEREBRAL ISCHEMIC ATTACK, UNSPECIFIED (2) Cerebrovascular accident (CVA) Code(s): I63.9 - CEREBRAL INFARCTION, UNSPECIFIED (3) HTN (hypertension) Code(s): I10 - ESSENTIAL (PRIMARY) HYPERTENSION Assessment/Plan This is a 79 y/o man with a PMhx of Dementia, HTN. Admitted to Telemetry for TIA vs CVA for further evaluation of their emergent condition. Plan: Admit Telemetry R/o TIA vs CVA NIHSS [address] reviewed Appreciate Neurology consult- MD aware per ED resident Cardiac Monitoring Brain MRI-pending Neuro checks Monitor CBC, BMP Serial Enzymes Carotid Doppler r/o Stenosis Lipid panel- reviewed Hold Asa- Allergy Continue home meds, when RN completes bedside swallow Swallow Eval [place] Disch Scale Fall Precautions Seizure Precautions FEN- Replete lytes, NPO DVT ppx- OOB, SCDs, Heparin SQ- pending MRI Brain results Code Status: Full Code Dispo: Requires Inpatient Care Visit type - Emergency Visit Emergency Visit: Yes ED Registration Date: 08/17/19 Care time: The patient presented to the Emergency Department on the above date and was hospitalized for further evaluation of their emergent condition. - New Patient This patient is new to me today: Yes Date on this admission: 08/18/19 - Critical Care Critical Care patient: No
[2019-08-18 04:45] VITALS: BMI 25.4
[2019-08-18 06:50] VITALS: TEMP 98.5
[2019-08-18 07:39] LABS: PHOSPHOROUS 3.1 mg/dL (2.5-4.9)
[2019-08-18 09:19] LABS: BASO % 0.3 % (0-2.0); EOS % 2.8 % (0-4.5); LYMPH % 30.7 % (8-40); MCH 30.5 pg (25.7-33.7); MCHC 33.4 g/dl (32.0-35.9); MEAN CELL VOLUME 91.2 fl (80-96); MONO % 7.2 % (3.8-10.2); PLATELET COUNT 149 K/MM3 (134-434); RBC 4.93 M/mm3 (4.00-5.60); RDW 12.7 % (11.9-15.9); WHITE BLOOD COUNT 5.8 K/mm3 (4.0-10.0)
[2019-08-18] MEDS ORDERED: PNEUMOC 13-VAL CONJ-DIP CRM/PF 0.5 ML DISP.SYRIN IM ONE (10:00)
[2019-08-18] MEDS ORDERED: LISINOPRIL 20 MG TABLET (FP) PO SCH (10:00)
[2019-08-18] MEDS ORDERED: amLODIPine BESYLATE 10 MG TABLET (FP) PO SCH (10:00)
--- NOTE | 2019-08-18 10:46 | PN ---
Progress Note (short form) - Note Progress Note: Vital Signs - 24 hr 08/17/19 08/17/19 08/17/19 23:15 23:53 23:55 Temperature 97.8 F 98.8 F Pulse Rate 64 Pulse Rate [ Radial] Respiratory 16 Rate Blood Pressure 208/98 H Blood Pressure 193/101 H [Right Arm] O2 Sat by Pulse 97 Oximetry (%) 08/18/19 08/18/19 08/18/19 00:03 00:40 01:42 Temperature Pulse Rate Pulse Rate [ 67 60 Radial] Respiratory 18 Rate Blood Pressure Blood Pressure 153/92 149/77 [Right Arm] O2 Sat by Pulse 99 99 99 Oximetry (%) 08/18/19 08/18/19 08/18/19 02:48 03:20 06:00 Temperature 97.6 F 98.5 F Pulse Rate 57 L 63 Pulse Rate [ 60 Radial] Respiratory 18 18 18 Rate Blood Pressure 179/92 H 171/90 H Blood Pressure 165/88 [Right Arm] O2 Sat by Pulse 99 96 Oximetry (%) Current Medications Generic Name Dose Route Start Last Admin Trade Name Freq PRN Reason Stop Dose Admin Amlodipine Besylate 10 mg 08/18/19 10:00 Norvasc - PO DAILY ADRIEL Donepezil HCl 10 mg 08/18/19 22:00 Aricept - PO HS ADRIEL Lisinopril 40 mg 08/18/19 10:00 Prinivil PO DAILY ADRIEL Metoprolol Succinate 100 mg 08/18/19 10:00 Toprol Xl - PO DAILY ADRIEL Laboratory Results - last 24 hr 08/17/19 08/17/19 08/17/19 23:40 23:40 23:40 WBC 6.9 RBC 4.82 Hgb 14.6 Hct 44.3 MCV 91.8 MCH 30.2 MCHC 32.9 RDW 12.9 Plt Count 135 MPV 10.5 Absolute Neuts (auto) 3.9 Neutrophils % 56.7 Lymphocytes % 33.1 D Monocytes % 7.0 Eosinophils % 2.9 D Basophils % 0.3 Nucleated RBC % 0 PT with INR INR PTT (Actin FS) Sodium 142 Potassium 3.8 Chloride 105 Carbon Dioxide 30 Anion Gap 7 L BUN 14.4 Creatinine 1.0 Est GFR (CKD-EPI)AfAm 82.60 Est GFR (CKD-EPI)NonAf 71.27 POC Glucometer Random Glucose 101 Hemoglobin A1c % Calcium 9.3 Phosphorus 3.1 Magnesium 2.0 Total Bilirubin 1.0 AST 32 ALT 44 Alkaline Phosphatase 76 Ammonia Creatine Kinase 99 Troponin I < 0.02 Total Protein 7.4 Albumin 3.9 Triglycerides 98 Cholesterol 177 Total LDL Cholesterol 100 HDL Cholesterol 56 TSH 1.73 D Urine Color Urine Appearance Urine pH Ur Specific [place] Urine Protein Urine Glucose (UA) Urine Ketones Urine Blood Urine Nitrite Urine Bilirubin Urine Urobilinogen Ur Leukocyte Esterase Urine WBC (Auto) Urine RBC (Auto) Urine Casts (Auto) U Epithel Cells (Auto) Urine Bacteria (Auto) 08/17/19 08/17/19 08/18/19 23:40 23:47 00:20 WBC RBC Hgb Hct MCV MCH MCHC RDW Plt Count MPV Absolute Neuts (auto) Neutrophils % Lymphocytes % Monocytes % Eosinophils % Basophils % Nucleated RBC % PT with INR 12.00 INR 1.02 PTT (Actin FS) 36.2 Sodium Potassium Chloride Carbon Dioxide Anion Gap BUN Creatinine Est GFR (CKD-EPI)AfAm Est GFR (CKD-EPI)NonAf POC Glucometer Random Glucose Hemoglobin A1c % Calcium Phosphorus Magnesium Total Bilirubin AST ALT Alkaline Phosphatase Ammonia < 10.00 L Creatine Kinase Troponin I Total Protein Albumin Triglycerides Cholesterol Total LDL Cholesterol HDL Cholesterol TSH Urine Color Yellow Urine Appearance Clear Urine pH 5.5 Ur Specific [place] 1.015 Urine Protein 2+ H Urine Glucose (UA) Negative Urine Ketones Negative Urine Blood Negative Urine Nitrite Negative Urine Bilirubin Negative Urine Urobilinogen 1.0 Ur Leukocyte Esterase Negative Urine WBC (Auto) 2 Urine RBC (Auto) 1 Urine Casts (Auto) 2 U Epithel Cells (Auto) 0.8 Urine Bacteria (Auto) 0.7 08/18/19 08/18/19 08/18/19 01:37 06:33 06:33 WBC RBC Hgb Hct MCV MCH MCHC RDW Plt Count MPV Absolute Neuts (auto) Neutrophils % Lymphocytes % Monocytes % Eosinophils % Basophils % Nucleated RBC % PT with INR INR PTT (Actin FS) Sodium Potassium Chloride Carbon Dioxide Anion Gap BUN Creatinine Est GFR (CKD-EPI)AfAm Est GFR (CKD-EPI)NonAf POC Glucometer 113 Random Glucose Hemoglobin A1c % 5.5 Calcium Phosphorus 3.1 Magnesium 2.0 Total Bilirubin AST ALT Alkaline Phosphatase Ammonia Creatine Kinase Troponin I Total Protein Albumin Triglycerides Cholesterol Total LDL Cholesterol HDL Cholesterol TSH Urine Color Urine Appearance Urine pH Ur Specific [place] Urine Protein Urine Glucose (UA) Urine Ketones Urine Blood Urine Nitrite Urine Bilirubin Urine Urobilinogen Ur Leukocyte Esterase Urine WBC (Auto) Urine RBC (Auto) Urine Casts (Auto) U Epithel Cells (Auto) Urine Bacteria (Auto) 08/18/19 08/18/19 06:55 09:14 WBC 5.8 RBC 4.93 Hgb 15.0 Hct 45.0 MCV 91.2 MCH 30.5 MCHC 33.4 RDW 12.7 Plt Count 149 MPV 11.0 Absolute Neuts (auto) 3.5 Neutrophils % 59.0 Lymphocytes % 30.7 Monocytes % 7.2 Eosinophils % 2.8 Basophils % 0.3 Nucleated RBC % 0 PT with INR INR PTT (Actin FS) Sodium Potassium Chloride Carbon Dioxide Anion Gap BUN Creatinine Est GFR (CKD-EPI)AfAm Est GFR (CKD-EPI)NonAf POC Glucometer 116 Random Glucose Hemoglobin A1c % Calcium Phosphorus Magnesium Total Bilirubin AST ALT Alkaline Phosphatase Ammonia Creatine Kinase Troponin I Total Protein Albumin Triglycerides Cholesterol Total LDL Cholesterol HDL Cholesterol TSH Urine Color Urine Appearance Urine pH Ur Specific [place] Urine Protein Urine Glucose (UA) Urine Ketones Urine Blood Urine Nitrite Urine Bilirubin Urine Urobilinogen Ur Leukocyte Esterase Urine WBC (Auto) Urine RBC (Auto) Urine Casts (Auto) U Epithel Cells (Auto) Urine Bacteria (Auto)
--- NOTE | 2019-08-18 10:52 | DS ---
Physical Examination Vital Signs: Vital Signs Temperature 98.5 F 08/18/19 06:00 Pulse Rate 63 08/18/19 06:00 Respiratory Rate 18 08/18/19 06:00 Blood Pressure 171/90 H 08/18/19 06:00 O2 Sat by Pulse Oximetry (%) 96 08/18/19 03:20 Labs: CBC, BMP 08/18/19 09:14 08/17/19 23:40 Discharge Summary Problems reviewed: Yes Reason For Visit: TRANSIENT ISCHMIC ATTACK, CEREBROVASCULAR ACCIDENT Current Active Problems Cerebrovascular accident (CVA) (Acute) Transient ischemic attack (Acute) Condition: Stable - Instructions Referrals: Ihsan Naqvi MD [Primary Care Provider] - Sandro Gutierrez MD [Staff Physician] - Disposition: HOME - Home Medications Comprehensive Discharge Medication List: Ambulatory Orders Metoprolol Succinate [Toprol XL -] 100 mg PO DAILY 10/06/13 Amlodipine Besylate [Norvasc -] 10 mg PO DAILY 10/26/18 Donepezil HCl 10 mg PO BID 10/26/18 Oxybutynin Chloride [Ditropan Xl] 10 mg PO DAILY 10/26/18 metFORMIN HCL [Metformin HCl ER] 500 mg PO DAILY 10/26/18 Atorvastatin Ca [Lipitor] 20 mg PO HS #30 tablet 08/18/19 Clopidogrel Bisulfate [Plavix -] 75 mg PO DAILY #30 tablet 08/18/19 Desmopressin Acetate [Desmopressin Acetate -] 0.2 mg PO DAILY 08/18/19 Lisinopril [Prinivil -] 40 mg PO DAILY 08/18/19 Solifenacin Succinate 5 mg PO DAILY 08/18/19
[2019-08-18] MEDS ORDERED: ASPIRIN 81 MG CHEWABLE TABLETS PO SCH (11:00)
--- NOTE | 2019-08-18 11:21 | CON.NEURO ---
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 Cardio/Vascular: Yes: HTN Gastrointestinal: Yes: Ascites, GERD Hepatobiliary: Yes: Hepatitis C Renal/: Yes: Cancer, Hematuria, UTI - Alcohol/Substance Use Hx Alcohol Use: No History of Substance Use: reports: None - Smoking History Smoking history: Never smoked Have you smoked in the past 12 months: No - Social History ADL: Family Assistance History of Recent Travel: No Home Medications - Allergies Allergies/Adverse Reactions: Allergies Allergy/AdvReac Type Severity Reaction Status Date / Time aspirin Allergy Verified 08/13/19 12:17 ciprofloxacin [From Cipro] Allergy Verified 08/13/19 12:17 ciprofloxacin HCl Allergy Verified 08/13/19 12:17 [From Cipro] penicillin G Allergy Verified 08/13/19 12:17 - Home Medications Home Medications: Ambulatory Orders Metoprolol Succinate [Toprol XL -] 100 mg PO DAILY 10/06/13 Amlodipine Besylate [Norvasc -] 10 mg PO DAILY 10/26/18 Donepezil HCl 10 mg PO BID 10/26/18 Oxybutynin Chloride [Ditropan Xl] 10 mg PO DAILY 10/26/18 metFORMIN HCL [Metformin HCl ER] 500 mg PO DAILY 10/26/18 Atorvastatin Ca [Lipitor] 20 mg PO HS #30 tablet 08/18/19 Clopidogrel Bisulfate [Plavix -] 75 mg PO DAILY #30 tablet 08/18/19 Desmopressin Acetate [Desmopressin Acetate -] 0.2 mg PO DAILY 08/18/19 Lisinopril [Prinivil -] 40 mg PO DAILY 08/18/19 Solifenacin Succinate 5 mg PO DAILY 08/18/19 Physical Exam-Neuro Vital Signs: Vital Signs Temperature 98.5 F 08/18/19 06:00 Pulse Rate 63 08/18/19 06:00 Respiratory Rate 18 08/18/19 06:00 Blood Pressure 171/90 H 08/18/19 06:00 O2 Sat by Pulse Oximetry (%) 96 08/18/19 03:20 Labs: CBC, BMP 08/18/19 09:14 08/17/19 23:40 INR, PTT INR 1.02 (0.83-1.09) 08/17/19 23:40 Assessment/Plan cc Facial weakness and facial droopiness HPI 79 year old male history of Dementia, HTN. He was brougt to hospital for right facial droopiness and slurring of speech. Stroke code was called and later his symptoms resolved. Patient has been walking around the hospital. No acute distress. PMH Hep C, GERD,HTN,Dementia, Allergies/Adverse Reactions: Allergies Allergy/AdvReac Type Severity Reaction Status Date / Time aspirin Allergy Verified 08/13/19 12:17 ciprofloxacin [From Cipro] Allergy Verified 08/13/19 12:17 ciprofloxacin HCl Allergy Verified 08/13/19 12:17 [From Cipro] penicillin G Allergy Verified 08/13/19 12:17 Home Medications: Metoprolol Succinate [Toprol XL -] 100 mg PO DAILY 10/06/13 Amlodipine Besylate [Norvasc -] 10 mg PO DAILY 10/26/18 Donepezil HCl 10 mg PO BID 10/26/18 Oxybutynin Chloride [Ditropan Xl] 10 mg PO DAILY 10/26/18 metFORMIN HCL [Metformin HCl ER] 500 mg PO DAILY 10/26/18 Desmopressin Acetate [Ddavp -] 0.2 mg PO DAILY 08/18/19 Lisinopril [Prinivil -] 40 mg PO DAILY 08/18/19 Solifenacin Succinate 5 mg PO DAILY 08/18/19 ROS,FH,SH reviewed in chart NEUROLOGICAL EXAMINATION Alert oriented x 2, speech is normal, vss, neck is supple speech is normal eomi, pupils reactive, no face asymmetry moving all ext sensaton is normal gait and coordination is normal ct head is normal carotid ultraosund is pending Asssessmnet/Plan 79 year old male history of Dementia, and htn, most likley have TIA and symptoms resolved. PLAN: Suggest to take plavix and statin -carotid ultrasound is pending - patinet can be discharged and follow up outpatient Thanking you so much Sandro Gutierrez MD
--- NOTE | 2019-08-18 11:34 | EKG ---
Test Reason : Blood Pressure : / mmHG Vent. Rate : 064 BPM Atrial Rate : 064 BPM P-R Int : 104 ms QRS Dur : 102 ms QT Int : 376 ms P-R-T Axes : 040 007 091 degrees QTc Int : 387 ms SINUS RHYTHM WITH SHORT TN MINIMAL VOLTAGE CRITERIA FOR LVH, MAY BE NORMAL VARIANT NONSPECIFIC T WAVE ABNORMALITY ABNORMAL ECG WHEN COMPARED WITH ECG OF 13-AUG-2019 15:29, NO SIGNIFICANT CHANGE WAS FOUND Confirmed by YOUSUF DIXON MD ([id number]) on 08/18/2019 11:34:40 AM Referred By: Confirmed By:YOUSUF DIXON MD
[2019-08-18] MEDS ORDERED: CLOPIDOGREL BISULFATE 75 MG TABLET (FP) PO SCH (11:45)
[2019-08-18 13:01] VITALS: BP 163/86; PULSE 72
[2019-08-18] MEDS ORDERED: ATORVASTATIN CA 20 MG TABLET (FP) PO SCH (22:00)
[2019-08-18] MEDS ORDERED: DONEPEZIL HCL 10 MG TABLET (FP) PO SCH (22:00)
== END 2019-08-18 12:10 | disposition home or self-care (01) | DRG 69 ==
LOC: JER 23:15 → JERBED 08-18 00:58 → J4W 08-18 04:05
PROVIDERS: ADMIT Internal Medicine; ATTEND Internal Medicine
DX: G45.9 Transient cerebral ischemic attack, unspecified (principal); R47.81 Slurred speech; R29.810 Facial weakness; F03.90 Unspecified dementia, unspecified severity, without behavioral disturbance, psychotic disturbance, mood disturbance, and anxiety; I10 Essential (primary) hypertension; K21.9 Gastro-esophageal reflux disease without esophagitis; R29.702 NIHSS score 2
CPT/HCPCS: 36415; 70450-TC; 71045-TC-FY; 80048; 80053; 80061; 81003; 82140; 82550; 82962; 83036; 83721; 83735; 84100; 84443; 84484; 85025; 85610; 85730; 87086; 90670; 93005; 93010; 93880-TC; 99285-25; J0131

== ENCOUNTER 2019-10-12 11:14 | Emergency (ER) | payer MEDICARE, OTHER ==
[2019-10-12 11:31] VITALS: TEMP 98.6; BMI 29.2
--- NOTE | 2019-10-12 12:46 | PDOC ---
History of Present Illness - General Chief Complaint: Injury Stated Complaint: FALL Time Seen by Provider: 10/12/19 12:33 - History of Present Illness Initial Comments: The pt is a 79M w/ a history of Alzheimer's Dz, DM, HTN, HLD, TIA who presents for evaluation of left foot pain and swelling since likely Thursday. The pt is unable to provide an accurate history 2/2 Alzheimer's Dz, history provided by aid. Pt and aid deny fever, prolonged immobility. Pt states pain is constant, worse with walking/touch, and is alleviated by rest. Denies N/V/D, dysuria, chest pain, trouble breathing, abdominal pain, changes in sensation/strength 10/12/19 12:52 Past History - Past Medical History Allergies/Adverse Reactions: Allergies Allergy/AdvReac Type Severity Reaction Status Date / Time aspirin Allergy Verified 10/12/19 11:25 ciprofloxacin [From Cipro] Allergy Verified 10/12/19 11:25 ciprofloxacin HCl Allergy Verified 10/12/19 11:25 [From Cipro] penicillin G Allergy Verified 10/12/19 11:25 Home Medications: Ambulatory Orders Metoprolol Succinate [Toprol XL -] 100 mg PO DAILY 10/06/13 Amlodipine Besylate [Norvasc -] 10 mg PO DAILY 10/26/18 Donepezil HCl 10 mg PO BID 10/26/18 Oxybutynin Chloride [Ditropan Xl] 10 mg PO DAILY 10/26/18 metFORMIN HCL [Metformin HCl ER] 500 mg PO DAILY 10/26/18 Atorvastatin Ca [Lipitor] 20 mg PO HS #30 tablet 08/18/19 Clopidogrel Bisulfate [Plavix -] 75 mg PO DAILY #30 tablet 08/18/19 Desmopressin Acetate [Desmopressin Acetate -] 0.2 mg PO DAILY 08/18/19 Lisinopril [Prinivil -] 40 mg PO DAILY 08/18/19 Solifenacin Succinate 5 mg PO DAILY 08/18/19 Anemia: No Asthma: No Cancer: No Cardiac Disorders: No CVA: No COPD: No CHF: No Dementia: No Diabetes: Yes GI Disorders: Yes (GERD) HTN: Yes Hypercholesterolemia: No Liver Disease: Yes (HEPATITIS C, ENLARGED LIVE, ASCITIES,NALD CIRRHOSIS) Seizures: No Thyroid Disease: No - Surgical History Cholecystectomy: Yes (CHOLECYSTECTOMY 1992, prostate vaporization) - Psycho Social/Smoking Cessation Hx Smoking History: Never smoked Have you smoked in the past 12 months: No Hx Alcohol Use: No Drug/Substance Use Hx: No Substance Use Type: None Hx Substance Use Treatment: No Review of Systems - Review of Systems Able to Perform ROS?: Yes Comments:: GENERAL/CONSTITUTIONAL: No fever or chills. No weakness HEAD, EYES, EARS, NOSE AND THROAT: No change in vision. No change in hearing. No sore throat CARDIOVASCULAR: No chest pain or shortness of breath RESPIRATORY: Denies cough, hemoptysis GASTROINTESTINAL: No nausea, vomiting, diarrhea or constipation GENITOURINARY: No dysuria, frequency, or change in urination MUSCULOSKELETAL: No joint or muscle swelling or pain. No neck or back pain SKIN: +left food redness NEUROLOGIC: No headache, vertigo, loss of consciousness, or change in strength/ sensation ENDOCRINE: No increased thirst. No abnormal weight change HEMATOLOGIC/LYMPHATIC: No anemia, easy bleeding, or history of blood clots ALLERGIC/IMMUNOLOGIC: No hives or skin allergy 10/12/19 12:45 Is the patient limited Estonian proficient: No *Physical Exam - Vital Signs Last Vital Signs Temp Pulse Resp BP Pulse Ox 98.6 F 85 16 175/79 H 99 10/12/19 11:26 10/12/19 11:26 10/12/19 11:26 10/12/19 11:26 10/12/19 11:26 - Physical Exam GENERAL: Awake, alert, and oriented to person/place/time, in no acute distress HEAD: No signs of trauma, normoc ephalic, atraumatic EYES: PERRLA, EOMI, sclera anicteric, conjunctiva clear ENT: Hearing grossly normal, nares patent, oropharynx clear without exudates. Moist mucosa LUNGS: No distress, speaks in full sentences, clear to auscultation bilaterally HEART: Regular rate and rhythm, normal S1 and S2, no murmurs appreciated, peripheral pulses normal and equal bilaterally ABDOMEN: Soft, nontender, normoactive bowel sounds. No guarding, no rebound. No masses EXTREMITIES: Left midfoot TTP, neg b/l malleoli TTP NEUROLOGICAL: Cranial nerves II through XII grossly intact. Normal speech, no focal sensorimotor deficits SKIN: L dorsal midfoot erythema 10/12/19 12:45 ED Treatment Course - LABORATORY CBC & Chemistry Diagram: 10/12/19 13:25 10/12/19 13:25 Medical Decision Making - Medical Decision Making The pt is a 79M w/ a history of Alzheimer's Dz, DM, HTN, HLD, TIA who presents for evaluation of left foot pain and swelling since likely Thursday. Ddx: trauma, cellulitis, consider gout, osteo ED Course Labs sent foot/ankle XR Tylenol for 975mg PO once 10/12/19 14:16 Labs unremarkable XR w/ left distal 5th metatarsal fx Hard shoe provided Plan for D/C w/ Ortho f/u Discharge instructions and return precautions given Patient in agreement and verbalized understanding Dispo: Home 10/12/19 15:29 Discharge - Discharge Information Problems reviewed: Yes Clinical Impression/Diagnosis: Fracture of 5th metatarsal Qualifiers: Encounter type: initial encounter Fracture type: closed Fracture alignment: nondisplaced Laterality: left Qualified Code(s): S92.355A - Nondisplaced fracture of fifth metatarsal bone, left foot, initial encounter for closed fracture Condition: Stable Disposition: HOME - Admission No - Follow up/Referral Referrals: Sandeep Easley MD [Staff Physician] - - Patient Discharge Instructions Patient Printed Discharge Instructions: DI for Foot Fracture Additional Instructions: You were seen in the Emergency Department for evaluation and found to have a fracture in your left foot. A hard shoe was provided, wear while walking. Follow up with Orthopedics and primary care provider in a week. For pain you may take Tylenol 650mg every 6 hours and Ibuprofen 600mg every 6-8 hours, alternating them each time. Return to the Emergency Department if you develop fevers, chest pain, trouble breathing, worsening pain, change in sensation, worsening symptoms, or any new/ concerning symptoms. Print Language: TAJIK - Post Discharge Activity
[2019-10-12] MEDS ORDERED: ACETAMINOPHEN 325 MG TABLET (FP) PO ONE (12:53)
[2019-10-12] MEDS ORDERED: ACETAMINOPHEN 325 MG TABLET (FP) ONE (13:07)
--- NOTE | 2019-10-12 13:27 | PDOC ---
Documentation entered by Melonie Rosa SCRIBE, acting as scribe for Reg Olivier MD. Reg Olivier MD: This documentation has been prepared by the Shelley chu Sammi, SCRIBE, under my direction and personally reviewed by me in its entirety. I confirm that the documentation accurately reflects all work, treatment, procedures, and medical decision making performed by me. Attending Attestation - Resident Resident Name: Ac Lucas - ED Attending Attestation I have performed the following: I have examined & evaluated the patient, The case was reviewed & discussed with the resident, I agree w/resident's findings & plan, Exceptions are as noted - HPI HPI: 10/12/19 13:22 The patient is a 79 year old male, with PMH of alzheimer's, DM, HTN, HLD, TIA who presents with 5 days of left foot pain and edema. Patient is a poor history due to his alzheimer's. - Physicial Exam PE: 10/12/19 13:24 Patient is awake and alert, well-nourished, in no significant distress; vital signs are noted Normocephalic and atraumatic CTA RRR Abdomen soft, nontender, nondistended Pelvis is stable Left foot: Grossly edematous and erythematous with involvement of the dorsal aspect of the mid and forefoot; tender to palpation along the proximal fifth metatarsal; neurovascularly intact distally and proximally, extensive bilateral onychomycosis is noted. - Medical Decision Making 10/12/19 13:26 Patient is a well-appearing 79-year-old male with multiple comorbidities, history of dementia who presents with atraumatic swelling and erythema of the left foot. Differential diagnosis includes cellulitis versus fracture versus gouty arthropathy versus osteomyelitis. Will obtain CBC/CMP/blood cultures. Will obtain foot x-ray to rule out fracture. Will reassess.
[2019-10-12 13:42] LABS: BASO % 0.3 % (0-2.0); EOS % 0.5 % (0-4.5); HEMATOCRIT 42.8 % (35.4-49); HEMOGLOBIN 14.2 GM/dL (11.7-16.9); LYMPH % 16.3 % (8-40); MCHC 33.1 g/dl (32.0-35.9); MEAN CELL VOLUME 90.7 fl (80-96); MEAN PLT VOLUME 10.4 fl (7.5-11.1); MONO % 8.7 % (3.8-10.2); NEUT % 74.2 % (42.8-82.8); PLATELET COUNT 155 K/MM3 (134-434); RBC 4.72 M/mm3 (4.00-5.60)
[2019-10-12 14:36] LABS: BILIRUBIN,TOTAL 1.4 mg/dL (0.2-1); BLOOD UREA NITROGEN 12.7 mg/dL (7-18); CALCIUM 9.9 mg/dL (8.5-10.1); POTASSIUM 4.4 mmol/L (3.5-5.1); TOT PROT 7.8 g/dl (6.4-8.2)
[2019-10-12 16:20] VITALS: BP 176/83; PULSE 76
== END 2019-10-12 16:22 | disposition home or self-care (01) ==
LOC: JER 11:14 → JERFT 11:14 → JER 16:22
DX: S92.355A Nondisplaced fracture of fifth metatarsal bone, left foot, initial encounter for closed fracture (principal); G30.9 Alzheimer's disease, unspecified; F02.80 Dementia in other diseases classified elsewhere, unspecified severity, without behavioral disturbance, psychotic disturbance, mood disturbance, and anxiety; E11.9 Type 2 diabetes mellitus without complications; I10 Essential (primary) hypertension; E78.5 Hyperlipidemia, unspecified; Z88.8 Allergy status to other drugs, medicaments and biological substances; Z88.0 Allergy status to penicillin; B19.20 Unspecified viral hepatitis C without hepatic coma; K21.9 Gastro-esophageal reflux disease without esophagitis
CPT/HCPCS: 36415; 73610-TC-LT-FY; 73630-TC-LT; 80053; 85025; 87040; 99282-25

== ENCOUNTER 2019-10-19 12:01 | Observation (INO) | payer MEDICARE, OTHER ==
[2019-10-19 12:42] VITALS: BMI 25.8
--- NOTE | 2019-10-19 13:04 | PDOC ---
Documentation entered by Leanna Burroughs SCRIBE, acting as scribe for Luma Varghese MD. Luma Varghese MD: This documentation has been prepared by the Manjeet chu Nirvannie, SCRIBE, under my direction and personally reviewed by me in its entirety. I confirm that the documentation accurately reflects all work, treatment, procedures, and medical decision making performed by me. History of Present Illness - General Chief Complaint: Chest Pain Stated Complaint: CHEST PAIN Time Seen by Provider: 10/19/19 12:35 History Source: Patient, Care Provider Exam Limitations: No Limitations - History of Present Illness Initial Comments: 10/19/19 14:14 HPI: The 79YOM with significant past medical history of Alzheimer's Dementia, DM, HTN (on Plavix), HLD, TIA presenting to the ED with 1 day of chest pain, dizziness, hypoxia, and elevated blood pressure. As per patients aid at bedside , he was being evaluated at her orthopedist office (Dr. Shearer) at which time he was found to be hypertensive (192/90 mmHg) and hypoxic (88% on rm air). Per Dr. Copeland note and patient, today he began to experience chest pain and dizziness. Patient received normal x-rays at the orthopedist office and Dr. Shearer would like a CT of the extremity. History is limited secondary to patient s dementia. Denies fever, chills, SOB, palpitation, weakness, N, V, D, abdominal pain, bladder and bowel problems, focal weakness/paresthesias, leg swelling/pain, rash. No sick contacts or travel. No new changes in medications. No suspicious food intake Allergies: ASA, Ciprofloxacin, PCN Past Medical History/PSH:Alzheimer's Dementia, DM, HTN (on Plavix), HLD, TIA Social history: Lives with family. No tobacco, ETOH or drug use. Meds: as documented in EMR Family history: noncontributory PMD: Dr. Naqvi ROS: Constitutional: no fevers or chills. HEENT: +dizziness, no headache. No congestion. No visual/hearing disturbances. CVS: + cp. no syncope. Resp: no sob. No cough. Gastrointestinal: no abdominal pain, nausea or vomiting. Genitourinary: no urinary sx, hematuria. MUSCULOSKELETAL: No joint pain and swelling. No neck or back pain. SKIN: no redness or skin changes, no discharge, no rash. No wounds. Hematologic: no easy bruising/bleeding. NEUROLOGIC: + dizziness. No headache. no LOC or altered mental status. No weakness, numbness or tingling. Psych: no anxiety or depression Allergic/Immunologic: no allergies All other systems reviewed and negative, or as documented in HPI. Physical exam: General: Well appearing, awake and alert, NAD. HEENT: NCAT, PERRL, EOMI, clear conjunctiva, anicteric, moist mucus membranes, clear oropharynx, no oral lesions.. Neck: neck supple, FROM Resp: CTAB, normal and even respirations, no respiratory distress CVS: RRR, no murmurs, 2+ peripheral pulses throughout, no peripheral edema Abdomen: soft, NTND, no rebound or guarding. No CVAT. Back: nontender, normal inspection and ROM MSK: no edema, GALVAN x4, ROM intact. No clubbing or cyanosis. normal bulk and tone. +left lateral metatarsal TTP, swelling noted. Extremities: no calf tenderness Neuro: alert, oriented appropriately; no focal neurologic deficits Psych: Calm and cooperative Skin: warm and well perfused, cap refill <2 sec, normal color 10/19/19 15:12 Past History - Past Medical History Allergies/Adverse Reactions: Allergies Allergy/AdvReac Type Severity Reaction Status Date / Time aspirin Allergy Verified 10/19/19 12:34 ciprofloxacin [From Cipro] Allergy Verified 10/19/19 12:34 ciprofloxacin HCl Allergy Verified 10/19/19 12:34 [From Cipro] penicillin G Allergy Verified 10/19/19 12:34 Home Medications: Ambulatory Orders Amlodipine Besylate [Norvasc -] 10 mg PO DAILY 10/26/18 Donepezil HCl 5 mg PO BID 10/26/18 metFORMIN HCL [Metformin HCl ER] 500 mg PO DAILY 10/26/18 Atorvastatin Ca [Lipitor] 20 mg PO HS #30 tablet 08/18/19 Clopidogrel Bisulfate [Plavix -] 75 mg PO DAILY #30 tablet 08/18/19 Lisinopril [Prinivil -] 40 mg PO DAILY 08/18/19 Solifenacin Succinate 5 mg PO DAILY 08/18/19 Anemia: No Asthma: No Cancer: No Cardiac Disorders: No CVA: No COPD: No CHF: No Dementia: Yes Diabetes: Yes GI Disorders: Yes (GERD) HTN: Yes Hypercholesterolemia: No Liver Disease: Yes (HEPATITIS C, ENLARGED LIVE, ASCITIES,NALD CIRRHOSIS) Seizures: No Thyroid Disease: No - Surgical History Cholecystectomy: Yes (CHOLECYSTECTOMY 1992, prostate vaporization) - Psycho Social/Smoking Cessation Hx Smoking History: Never smoked Have you smoked in the past 12 months: No Hx Alcohol Use: No Drug/Substance Use Hx: No Substance Use Type: None Hx Substance Use Treatment: No Cardiac Specific PMH - Complaint Specific PMHX Pacemaker: No *Physical Exam - Vital Signs Last Vital Signs Temp Pulse Resp BP Pulse Ox 98.4 F 74 20 175/93 H 98 10/19/19 12:37 10/19/19 12:37 10/19/19 12:37 10/19/19 12:37 10/19/19 12:37 Heart Score/ECG Review - History History: Slightly suspicious - Electrocardiogram EKG: Non specific repolarization disturbance - Age Age: >/= 65 - Risk Factors Risk Factors Heart Score: Yes Hx Hypercholesterolemia, Yes Hx Hypertension Based on the list above the patient has:: 1-2 risk factors - Troponin Troponin: </= normal limit - Score Heart Score - Total: 4 #1 ECG reviewed & interpreted by me at: 12:10 General ECG Interpretation: Sinus Rhythm, Normal Rate, Normal Intervals 10/19/19 13:04 EKG normal sinus rhythm 74 bpm, no interval abnormalities, narrow QRS, ST and T wave segments and morphology normal. Nonspecific T wave abnormalities 10/19/19 15:10 ED Treatment Course - LABORATORY CBC & Chemistry Diagram: 10/19/19 13:05 10/19/19 13:05 - ADDITIONAL ORDERS Additional order review: Laboratory Results 10/19/19 10/19/19 13:05 13:05 PT with INR 13.10 H INR 1.11 H PTT (Actin FS) 37.5 H Sodium 142 Potassium 3.9 Chloride 106 Carbon Dioxide 30 Anion Gap 6 L BUN 10.8 Creatinine 0.9 Est GFR (CKD-EPI)AfAm 93.82 Est GFR (CKD-EPI)NonAf 80.95 Random Glucose 109 H Calcium 9.1 Magnesium 2.0 Total Bilirubin 0.8 AST 28 ALT 37 Alkaline Phosphatase 76 Creatine Kinase 79 Troponin I < 0.02 Total Protein 7.3 Albumin 3.6 10/19/19 13:05 RBC 4.53 MCV 91.0 MCHC 33.0 RDW 13.0 MPV 9.9 Neutrophils % 66.9 Lymphocytes % 24.2 D Monocytes % 7.5 Eosinophils % 1.1 D Basophils % 0.3 - RADIOLOGY Radiology Studies Ordered: Category Date Time Status LOWER EXTREMITY CT W/O CONTR [CT] Stat CT Scan 10/19/19 14:16 Ordered CHEST X-RAY PORTABLE* [RAD] Stat Radiology 10/19/19 13:02 Completed Medical Decision Making - Medical Decision Making 10/19/19 14:21 Vital Signs Temp Pulse Resp BP Pulse Ox 98.4 F 74 20 175/93 H 98 10/19/19 12:37 10/19/19 12:37 10/19/19 12:37 10/19/19 12:37 10/19/19 12:37 VS reviewed wnl, +hypertensive DDx chest pain: ACS, coronary vasospasm, NSTEMI, arrhythmia, unstable angina, PE , dissection, PUD, esophageal spasm, GERD, gastritis, costochondritis, pneumonia , pleurisy, pericarditis/myocarditis. dehydration, electrolyte/metabolic derangements. Considered but clinically doubt based on HPI and PE: Low suspicion for pulmonary embolism or dissection. EKG normal sinus rhythm, no interval abnormalities, narrow QRS, ST and T wave segments and morphology normal. Nonspecific T wave abnormalities, unchanged from prior Chest pain HEART score 4 which denotes Moderate risk and probability for ACS, risk of 14-16% of MACE at 4-6 wks Given risk factors including comorbidities, chest pain chest pain cxr is clear, remainder of lytes and labs wnl. initial trop neg, reassuring, needs serials and card monitor given ASA EKG unremarkable, NSR spoke with Dr Shearer, ortho, xray normal at outpatient setting, planned and will request CT immobilize will see as inpatient for immobilization pending CT lower extremity placed. admit tele for chest pain, HTN urgency, r/o ACS. close observation, echo/serial trop/ekg and monitor s/o to Dr Ayon, cards cs with Dr Thompson for chest pain eval Plan for admit observation, possible Stress testing, to r/o ischemia, serial trops and EKG/tele monitoring. ASA administered, pain controlled, discussion with patient and family at bedside, made aware of impression and plan, questions answered. 10/19/19 15:11 10/19/19 15:14 Discharge - Discharge Information Problems reviewed: Yes Clinical Impression/Diagnosis: Hypertensive urgency, Chest pain Condition: Fair - Admission Yes - Follow up/Referral Referrals: Ihsan Naqvi MD [Primary Care Provider] - - Patient Discharge Instructions - Post Discharge Activity
[2019-10-19 13:23] LABS: BASO % 0.3 % (0-2.0); EOS % 1.1 % (0-4.5); HEMATOCRIT 41.2 % (35.4-49); HEMOGLOBIN 13.6 GM/dL (11.7-16.9); LYMPH % 24.2 % (8-40); MEAN PLT VOLUME 9.9 fl (7.5-11.1); MONO % 7.5 % (3.8-10.2); NEUT % 66.9 % (42.8-82.8); PLATELET COUNT 157 K/MM3 (134-434); RBC 4.53 M/mm3 (4.00-5.60); WHITE BLOOD COUNT 5.2 K/mm3 (4.0-10.0)
[2019-10-19 13:35] LABS: INR 1.11 (0.83-1.09); PROTHROMBIN TIME (PATIENT) 13.1 SEC (9.7-13.0)
[2019-10-19 13:38] LABS: ACTIVATED PTT 37.5 SECONDS (25.2-36.5)
[2019-10-19 14:04] LABS: ALBUMIN 3.6 g/dl (3.4-5.0); ALK PHOS 76 U/L (45-117); ANION GAP 6 MMOL/L (8-16); BILIRUBIN,TOTAL 0.8 mg/dL (0.2-1); BLOOD UREA NITROGEN 10.8 mg/dL (7-18); CALCIUM 9.1 mg/dL (8.5-10.1); CHLORIDE 106 mmol/L (98-107); CO2 30 mmol/L (21-32); CREATININE 0.9 mg/dL (0.55-1.3); GLUCOSE,RANDOM 109 mg/dL (74-106); POTASSIUM 3.9 mmol/L (3.5-5.1); SGOT/AST 28 U/L (15-37); SGPT/ALT 37 U/L (13-61); SODIUM 142 mmol/L (136-145); TOT PROT 7.3 g/dl (6.4-8.2)
--- NOTE | 2019-10-19 15:38 | EKG ---
Test Reason : Blood Pressure : / mmHG Vent. Rate : 074 BPM Atrial Rate : 074 BPM P-R Int : 126 ms QRS Dur : 088 ms QT Int : 348 ms P-R-T Axes : 054 000 045 degrees QTc Int : 386 ms POOR DATA QUALITY, INTERPRETATION MAY BE ADVERSELY AFFECTED NORMAL SINUS RHYTHM MODERATE VOLTAGE CRITERIA FOR LVH, MAY BE NORMAL VARIANT BORDERLINE ECG Confirmed by MD Kiah, Brad ([id number]) on 10/19/2019 3:38:02 PM Referred By: Confirmed By:Brad Dupont MD
[2019-10-19] MEDS ORDERED: METOPROLOL TARTRATE 5 MG/5 ML VIAL IVPUSH ONE (17:32)
[2019-10-19] MEDS ORDERED: METOPROLOL TARTRATE 5 MG/5 ML VIAL ONE (17:34)
[2019-10-19] MEDS ORDERED: ATORVASTATIN CA 20 MG TABLET (FP) PO SCH (22:00)
[2019-10-19] MEDS ORDERED: ATORVASTATIN CA 20 MG TABLET (FP) ONE (23:51)
[2019-10-19] MEDS ORDERED: DONEPEZIL HCL 5 MG TABLET (FP) ONE (23:51)
[2019-10-19] MEDS: DONEPEZIL HCL 5 MG TABLET (FP) PO SCH (23:55)
[2019-10-20 03:09] VITALS: TEMP 20
[2019-10-20 05:55] LABS: PH,URINE 6.5 (5.0-8.0); URINE APPEARANCE CLEAR; URINE BILIRUBIN NEGATIVE (NEGATIVE); URINE COLOR YELLOW; URINE GLUCOSE (UA) NEGATIVE (NEGATIVE); URINE KETONE NEGATIVE (NEGATIVE); URINE LEUK ESTERASE NEGATIVE (NEGATIVE); URINE NITRITE NEGATIVE (NEGATIVE); URINE PROTEIN NEGATIVE (NEGATIVE)
[2019-10-20 07:10] VITALS: PULSE 87
[2019-10-20 08:21] LABS: BASO % 0.3 % (0-2.0); EOS % 2.3 % (0-4.5); HEMATOCRIT 43.5 % (35.4-49); HEMOGLOBIN 14.6 GM/dL (11.7-16.9); LYMPH % 29.7 % (8-40); MCH 30.5 pg (25.7-33.7); MCHC 33.6 g/dl (32.0-35.9); MEAN CELL VOLUME 90.6 fl (80-96); MEAN PLT VOLUME 10.8 fl (7.5-11.1); MONO % 7.9 % (3.8-10.2); NEUT % 59.8 % (42.8-82.8); PLATELET COUNT 176 K/MM3 (134-434); RDW 12.6 % (11.9-15.9); WHITE BLOOD COUNT 6.1 K/mm3 (4.0-10.0)
[2019-10-20 08:24] LABS: ALBUMIN 4.1 g/dl (3.4-5.0); ALK PHOS 85 U/L (45-117); ANION GAP 8 MMOL/L (8-16); BILIRUBIN,TOTAL 1.4 mg/dL (0.2-1); BLOOD UREA NITROGEN 8.6 mg/dL (7-18); CALCIUM 10.2 mg/dL (8.5-10.1); CHLORIDE 104 mmol/L (98-107); CHOLESTEROL 196 mg/dL (50-200); CO2 31 mmol/L (21-32); CREATININE 0.9 mg/dL (0.55-1.3); GLUCOSE,RANDOM 118 mg/dL (74-106); HDL CHOLESTEROL 63 mg/dL (40-60); LDL CHOLESTEROL (ONLY SJRH) 111 mg/dL (5-100); SGOT/AST 35 U/L (15-37); SGPT/ALT 43 U/L (13-61); SODIUM 142 mmol/L (136-145); TRIGLYCERIDES 137 mg/dL (0-150)
[2019-10-20] MEDS ORDERED: LISINOPRIL 20 MG TABLET (FP) PO SCH (10:00)
[2019-10-20] MEDS ORDERED: SOLIFENACIN SUCCINATE 5 MG TAB PO SCH (10:00)
[2019-10-20] MEDS ORDERED: CLOPIDOGREL BISULFATE 75 MG TABLET (FP) PO SCH (10:00)
[2019-10-20] MEDS ORDERED: amLODIPine BESYLATE 10 MG TABLET (FP) PO SCH (10:00)
[2019-10-20] MEDS: DONEPEZIL HCL 5 MG TABLET (FP) PO SCH (10:20)
--- NOTE | 2019-10-20 10:46 | HP ---
[facility]ellite [facility] - Chief Complaint Chief Complaint: elevated BP History of Present Illness: sent from Office for elevated BP. no chest pain , dizziness, palpitations, SOB History Source: Patient, Transfer Record Limitations to Obtaining History: No Limitations - Past Medical History Allergies/Adverse Reactions: Allergies Allergy/AdvReac Type Severity Reaction Status Date / Time aspirin Allergy Verified 10/19/19 12:34 ciprofloxacin [From Cipro] Allergy Verified 10/19/19 12:34 ciprofloxacin HCl Allergy Verified 10/19/19 12:34 [From Cipro] penicillin G Allergy Verified 10/19/19 12:34 [employer]SEM[employer]ER: Yes: Dementia Cardiovascular: Yes: HTN Gastrointestinal: Yes: Ascites, GERD Hepatobiliary: Yes: Hepatitis C Renal/: Yes: Cancer, Hematuria, UTI Heme/Onc: Yes: Anemia - Current Medications Current Medications: Home Medications Medication Instructions Recorded Amlodipine Besylate [Norvasc -] 10 mg PO DAILY 10/26/18 Donepezil HCl 5 mg PO BID 10/26/18 metFORMIN HCL [Metformin HCl ER] 500 mg PO DAILY 10/26/18 Atorvastatin Ca [Lipitor] 20 mg PO HS #30 tablet 08/18/19 Clopidogrel Bisulfate [Plavix -] 75 mg PO DAILY #30 tablet 08/18/19 Lisinopril [Prinivil -] 40 mg PO DAILY 08/18/19 Solifenacin Succinate 5 mg PO DAILY 08/18/19 Satellite Physical Exam - Physical Examination Vital Signs: Vital Signs Period Temp Pulse Resp BP Sys/Dominique Pulse Ox Last 24 Hr 20 F-98.4 F 68-87 16-20 175-209/86-115 92-98 General Appearance: Well Developed Heart: Normal S1, Normal S2 Abdomen: Soft, No tenderness Extremities: No edema Satellite Impression/Plan - Impression/Plan Impression: HTN urgency Operative Procedure: Received his BP meds-- will dc pt home if BP better. cardiology eval. cardiac enzymes negative-- no cardiac testing needed at this time-- he will follow up with [facility] as outpt
--- NOTE | 2019-10-20 10:46 | DS ---
Physical Examination Vital Signs: Vital Signs Temperature 20 F L 10/20/19 03:07 Pulse Rate 87 10/20/19 06:30 Respiratory Rate 16 10/20/19 06:30 Blood Pressure 209/115 H 10/20/19 06:30 O2 Sat by Pulse Oximetry (%) 97 10/20/19 06:30 Labs: CBC, BMP 10/20/19 06:12 10/20/19 06:12 Discharge Summary Problems reviewed: Yes Reason For Visit: CHEST PAIN Current Active Problems Chest pain (Acute) Hypertensive urgency (Acute) Hospital Course: admitted for elevated BP denies chest pain , dizziness Sent from cardiology office BP was elevated , but now decreased stable for dc home cardiac enzymes negative follow up with CArdiology and PMD Condition: Fair - Instructions Referrals: Kranthi Thompson MD [Staff Physician] - Ihsan Naqvi MD [Primary Care Provider] - Salvador Oliva DPM [Staff Physician] - Disposition: HOME - Home Medications Comprehensive Discharge Medication List: Ambulatory Orders Amlodipine Besylate [Norvasc -] 10 mg PO DAILY 10/26/18 Donepezil HCl 5 mg PO BID 10/26/18 metFORMIN HCL [Metformin HCl ER] 500 mg PO DAILY 10/26/18 Atorvastatin Ca [Lipitor] 20 mg PO HS #30 tablet 08/18/19 Clopidogrel Bisulfate [Plavix -] 75 mg PO DAILY #30 tablet 08/18/19 Lisinopril [Prinivil -] 40 mg PO DAILY 08/18/19 Solifenacin Succinate 5 mg PO DAILY 08/18/19
--- NOTE | 2019-10-20 10:50 | CON.CARD ---
Cardiology Consult (text) - Consultation Consultation Note: cc: htn hpi: 79 m hx htn, hld, tia, sent from md office for htn. Pt denies cp sob palps dizzy loc pnd orthopnea le edema. In ER bp has been elevated. pmh: per hpi psh: none social: no tob fam: unknown ros: per hpi; all others nl meds: Home Medications Medication Instructions Recorded Amlodipine Besylate [Norvasc -] 10 mg PO DAILY 10/26/18 Donepezil HCl 5 mg PO BID 10/26/18 metFORMIN HCL [Metformin HCl ER] 500 mg PO DAILY 10/26/18 Atorvastatin Ca [Lipitor] 20 mg PO HS #30 tablet 08/18/19 Clopidogrel Bisulfate [Plavix -] 75 mg PO DAILY #30 tablet 08/18/19 Lisinopril [Prinivil -] 40 mg PO DAILY 08/18/19 Solifenacin Succinate 5 mg PO DAILY 08/18/19 pe: Vital Signs Period Temp Pulse Resp BP Sys/Dominique Pulse Ox Last 24 Hr 20 F-98.4 F 68-87 16-20 175-209/86-115 92-98 nad no jvd rrr s1s2 no mrg cta bl nl eff awake alert appropriate no le e/c/c abd nt nd pos bs no jaundiec diaphoresis pos dp pt no carotid bruits Current Medications Generic Name Dose Route Start Last Admin Trade Name Freq PRN Reason Stop Dose Admin Amlodipine Besylate 10 mg 10/20/19 10:00 10/20/19 10:21 Norvasc - PO 10 mg DAILY ADRIEL Administration Atorvastatin Calcium 20 mg 10/19/19 22:00 10/19/19 23:55 Lipitor - PO 20 mg HS ADRIEL Administration Clopidogrel Bisulfate 75 mg 10/20/19 10:00 10/20/19 10:21 Plavix - PO 75 mg DAILY ADRIEL Administration Donepezil HCl 5 mg 10/19/19 22:00 10/20/19 10:20 Aricept - PO 5 mg BID ADRIEL Administration Lisinopril 40 mg 10/20/19 10:00 10/20/19 10:21 Prinivil PO 40 mg DAILY ADRIEL Administration Metformin HCl 500 mg 10/20/19 07:00 10/20/19 09:00 Glucophage Xr - PO 500 mg DAILY@0700 ADRIEL Administration Solifenacin 5 mg 10/20/19 10:00 10/20/19 10:21 Vesicare - PO 5 mg DAILY ADRIEL Administration cxr: clear lungs ecg: sr nl intervals no ischemic changes echo 03/2018: lvh, nl lvef, nl rv, no sig valve path mibi 06/2017: nl mpi carotids 04/2019: no sig stenosis a/p: 79 m hx htn, hld, tia, dementia, sent from md office for htn. htn: -bp has been elevated in ER. Just got his AM meds, would monitor bp response, if improved then ok for dc from cardiac pov with outpt f/u. If remains elevated would add hydralazine 10 bid to start. hld: -cont statin tia: -cont statin, bp control, plavix cp: -pt denies cp -ce's neg, ecg unremarkable, no signs acs. no further cardiac testing needed for now.
[2019-10-20 12:11] VITALS: BP 165/85
== END 2019-10-20 11:50 | disposition home or self-care (01) ==
LOC: JER 12:01 → JERBED 15:07
PROVIDERS: ADMIT Internal Medicine; ATTEND Internal Medicine
PROC: 3E033GC Introduction of Other Therapeutic Substance into Peripheral Vein, Percutaneous Approach (ICD-10-PCS; principal; 2019-10-19)
DX: I16.0 Hypertensive urgency (principal); R07.89 Other chest pain; I10 Essential (primary) hypertension; E78.5 Hyperlipidemia, unspecified; E11.9 Type 2 diabetes mellitus without complications; G30.9 Alzheimer's disease, unspecified; F02.80 Dementia in other diseases classified elsewhere, unspecified severity, without behavioral disturbance, psychotic disturbance, mood disturbance, and anxiety; K21.9 Gastro-esophageal reflux disease without esophagitis; Z79.82 Long term (current) use of aspirin; Z88.0 Allergy status to penicillin; Z88.1 Allergy status to other antibiotic agents; Z86.73 Personal history of transient ischemic attack (TIA), and cerebral infarction without residual deficits; Z79.02 Long term (current) use of antithrombotics/antiplatelets; Z79.84 Long term (current) use of oral hypoglycemic drugs
CPT/HCPCS: 36415; 71045-TC-FY; 73700-TC-RT; 80053; 80061; 81003; 82550; 83721; 83735; 84443; 84484; 85025; 85610; 85730; 93005; 93010; 96374; 99285-25; G0378

== ENCOUNTER 2019-11-14 15:38 | Observation (INO) | payer MEDICARE, OTHER ==
--- NOTE | 2019-11-14 17:26 | PDOC ---
History of Present Illness - General Chief Complaint: Chest Pain Stated Complaint: NUMBNESS AND TINGLING Time Seen by Provider: 11/14/19 17:24 History Source: Patient, Family ( and Son at bedside.), Old Records, Pt declined Salesforce Trainer (Requested son provide interpretation) Exam Limitations: Language Barrier (Pt is German speaking only) - History of Present Illness Initial Comments: HPI: 79 y/o male presenting to [facility] ER complaining of resolved episode of chest tightness with perioral and tongue numbness. Also disoriented during this episode. Chest pain was across both left and right sides of the anterior chest wall. No movement into arms, back, neck, or abdomen. Estimates duration of 30 minutes before resolving. Pt denies any symptoms at time of interview. Denies infectious symptoms, SOB, abdominal pain, or syncope. Son believes he had a similar episode 3 months ago, but does not know the results of the hospitalization. Medical Hx: - HTN - DM - HLD - Prostate CA - Alzheimers Dementia - Possible TIA in Jul 2019 on Plavix Review of Systems: In addition to that documented in the HPI above, the additional ROS was obtained : Constitutional- Denies fevers or chills Head- Denies vision changes ENMT- Denies sore throat CV- Per HPI Resp- Denies SOB GI- Denies vomiting or diarrhea - Denies painful urination or hematuria MSK- Denies recent trauma Skin- Denies new rashes Neuro- Per HPI Endocrine- Denies polyuria Heme- Denies bleeding or bruising Physical Examination: Vital signs and nursing notes reviewed. Constitutional- Nontoxic, thin elderly male in no acute distress or obvious discomfort. Found semi-fowlers on hospital bed. Head- Normocephalic. No obvious external signs of trauma. Eyes- Pupils 3mm and PERRL. EOMI. Sclerae white. Conjunctiva moist and not injected. Throat- Oral cavity and pharynx normal. No inflammation, swelling, exudate, or lesions. Able to move tongue to the right and left. Neck- Supple, trachea is midline. Cardiovascular / Chest- Regular rate and regular rhythm. No murmur, rubs, clicks , or gallops. Peripheral pulses- radial pulses full. No pretibial edema. No chest wall tenderness to palpation. Respiratory- Breathing unlabored. Equal chest rise and fall. Clear to auscultation bilaterally. No stridor, no wheezing, no rhonchi. Gastrointestinal- abdomen is soft, non-tender, non-distended. Neuro- Alert and oriented x4. Moving all four extremities spontaneously. No facial asymmetry. No slurred speech. No focal deficits. No upper or lower extremity drift. Sensation to all four extremities intact. No nuchal rigidity. Skin- Warm, dry, and intact. Psych- Affect- appropriate. Mood- normal. Speech was non-labored, non- pressured. MDM: 79 y/o male presenting with resolved episode of chest pain and oral numbness. Unclear h/o similar. Afebrile. Vitals unremarkable for hypotension or tachycardia. Physical exam as described above. Pt's told the ED Attending she observed possible lip swelling versus facial droop earlier. D/D includes ACS , CVA/TIA, episode of confusion (unclear reliability of the pt). CXR unremarkable for acute cardiopulmonary findings. EKG unremarkable for ischemic findings. Labs unremarkable for significant derangement. Pt requested to leave. Attempted to discuss this decision with the pt via [employer] Telephone Salesforce Trainer (#[id number]). Became apparent pt was confused and not competent to refuse care. Spoke to the via translation. Discussed the fact that the pt was unable to refuse can and that he should be brought into the hospital for further workup. She agreed. Pts son no longer at bedside - he reportedly left the hospital. Pt became agitated. Ordered Ativan for anxiolytic. HCT unremarkable for acute findings. Pt denies further symptoms but continues to appear confused. Ordered delta troponin. Will admit the pt for further cardiac vs neurologic workup. 14 Nov 2019 23:36 PM In person discussion with resident Dr. Ayers. Verbally appraised of the pts HPI, ED course, and current plan of management. Will admit pt to stroke unit for attending Dr. Carrasco. Yohan Sanchez M.D., PGY2 Emergency Medicine Resident Past History - Past Medical History Allergies/Adverse Reactions: Allergies Allergy/AdvReac Type Severity Reaction Status Date / Time aspirin Allergy Verified 11/14/19 15:55 ciprofloxacin [From Cipro] Allergy Verified 11/14/19 15:55 ciprofloxacin HCl Allergy Verified 11/14/19 15:55 [From Cipro] penicillin G Allergy Verified 11/14/19 15:55 Home Medications: Ambulatory Orders Amlodipine Besylate [Norvasc -] 10 mg PO DAILY 10/26/18 Donepezil HCl 5 mg PO BID 10/26/18 metFORMIN HCL [Metformin HCl ER] 500 mg PO DAILY 10/26/18 Atorvastatin Ca [Lipitor] 20 mg PO HS #30 tablet 08/18/19 Clopidogrel Bisulfate [Plavix -] 75 mg PO DAILY #30 tablet 08/18/19 Lisinopril [Prinivil -] 40 mg PO DAILY 08/18/19 Solifenacin Succinate 5 mg PO DAILY 08/18/19 Anemia: No Asthma: No Cancer: No Cardiac Disorders: No CVA: No COPD: No CHF: No Dementia: Yes Diabetes: Yes GI Disorders: Yes (GERD) HTN: Yes Hypercholesterolemia: Yes Liver Disease: Yes (HEPATITIS C, ENLARGED LIVE, ASCITIES,NALD CIRRHOSIS) Seizures: No Thyroid Disease: No - Surgical History Cholecystectomy: Yes (CHOLECYSTECTOMY 1992, prostate vaporization) - Psycho Social/Smoking Cessation Hx Smoking History: Never smoked Have you smoked in the past 12 months: No Hx Alcohol Use: No Drug/Substance Use Hx: No Substance Use Type: None Hx Substance Use Treatment: No *Physical Exam - Vital Signs Last Vital Signs Temp Pulse Resp BP Pulse Ox 98.5 F 96 H 16 153/93 98 11/14/19 15:40 11/14/19 15:40 11/14/19 15:40 11/14/19 15:40 11/14/19 15:40 ED Treatment Course - LABORATORY CBC & Chemistry Diagram: 11/14/19 18:15 11/14/19 18:15 - ADDITIONAL ORDERS Additional order review: Laboratory Results 11/14/19 15:55 POC Glucometer 182 11/14/19 15:55 POC Glucometer 182 - RADIOLOGY Radiology Studies Ordered: Category Date Time Status CHEST PA & LAT [RAD] Stat Radiology 11/14/19 17:25 Ordered Discharge - Discharge Information Problems reviewed: Yes Clinical Impression/Diagnosis: Altered mental status Qualifiers: Altered mental status type: unspecified Qualified Code(s): R41.82 - Altered mental status, unspecified Chest pain Qualifiers: Chest pain type: unspecified Qualified Code(s): R07.9 - Chest pain, unspecified Condition: Stable - Admission Yes - Follow up/Referral - Patient Discharge Instructions - Post Discharge Activity
[2019-11-14 19:41] LABS: BASO % 0.5 % (0-2.0); EOS % 0.7 % (0-4.5); HEMOGLOBIN 14.8 GM/dL (11.7-16.9); LYMPH % 16.7 % (8-40); MCH 29.8 pg (25.7-33.7); MCHC 32.2 g/dl (32.0-35.9); MEAN CELL VOLUME 92.4 fl (80-96); MEAN PLT VOLUME 11.5 fl (7.5-11.1); MONO % 5.8 % (3.8-10.2); NEUT % 76.3 % (42.8-82.8); PLATELET COUNT 140 K/MM3 (134-434); RBC 4.97 M/mm3 (4.00-5.60); RDW 13.4 % (11.9-15.9); WHITE BLOOD COUNT 7.1 K/mm3 (4.0-10.0)
[2019-11-14 20:03] LABS: ALBUMIN 4.2 g/dl (3.4-5.0); ALK PHOS 89 U/L (45-117); ANION GAP 6 MMOL/L (8-16); BILIRUBIN,TOTAL 0.9 mg/dL (0.2-1); CALCIUM 10.2 mg/dL (8.5-10.1); CHLORIDE 104 mmol/L (98-107); CO2 32 mmol/L (21-32); CREATININE 0.9 mg/dL (0.55-1.3); GLUCOSE,RANDOM 162 mg/dL (74-106); MAGNESIUM 2.4 mg/dL (1.8-2.4); PHOSPHOROUS 2.6 mg/dL (2.5-4.9); POTASSIUM 4.6 mmol/L (3.5-5.1); SGOT/AST 32 U/L (15-37); SGPT/ALT 45 U/L (13-61); SODIUM 141 mmol/L (136-145); TOT PROT 8.3 g/dl (6.4-8.2)
--- NOTE | 2019-11-14 21:16 | PDOC ---
Attending Attestation - Resident Resident Name: Yohan Sanchez - ED Attending Attestation I have performed the following: I have examined & evaluated the patient, The case was reviewed & discussed with the resident, I agree w/resident's findings & plan, Exceptions are as noted - HPI HPI: 11/14/19 21:10 79-year-old male history of hypertension diabetes high cholesterol and dementia here today complaining of chest pain also complaining of perioral numbness and unable to move his tongue. Patient states this happened after his aide left he took his blood pressure medication around 8:00 approximately around 1130 he suddenly felt like his tongue was swollen or abnormal and he was unable to move his tongue he did feel little confused this time he did have associated chest pressure no radiation of the pressure lasted approximately 30 minutes. Episode was witnessed by his who states that his lips look swollen or abnormal and that he could not move his tongue he denies any focal weakness at that time there was no seizure-like activity no new medications or changes recently. No itching or other allergy-like symptoms per the son at the bedside he has had a similar episode previously at which time they did do a CT head and basic work- up which was unable to figure out what had happened. Patient has no history of known CVA or AL in the past follows with Dr. tamez nursing - Physicial Exam PE: 11/14/19 21:11 Awake alert no acute distress lungs are clear bilaterally there is no appreciated tongue swelling or lip swelling facial movements are symmetric speech is clear heart is regular 30 murmurs rubs or gallops abdomen is soft and nontender extremities are warm well perfused. Neurologically cranial nerves II through XII are intact speech is clear [id number] testing is normal 5 out of 5 muscle strength in all 4 extremities gait is not tested sensation is intact throughout - Medical Decision Making 11/14/19 21:13 79-year-old m history history of hypertension hyperlipidemia and diabetes here with episode of transient chest pain in addition with some lip swelling or deformity and unable to move the tongue. Differential includes TIA like episode angina infection such as pneumonia unlikely to be allergic as the symptoms are completely resolved on the patient's arrival to the ED plan CBC CMP troponin we will obtain a CT head recommending admission for this patient for unstable angina and TIA-like symptoms
--- NOTE | 2019-11-14 23:35 | HP ---
CHIEF COMPLAINT: chest pain PCP: Dr. Nancy Ayon HISTORY OF PRESENT ILLNESS: History obtained from at bedside, as patient is confused and unable to provide further history. 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 Patient is a 79 year old male with history of dementia, hypertension, hyperlipidemia, diabetes mellitus (non- insulin dependent), TIA, GERD, prostate cancer, presents with complaint of chest pressure. Endorses symptoms began approx 11AM while resting. Chest pain was not associated with shortness of breath. The endorses associated lip swelling, and that his mouth was "sleepy" in appearance. Symptoms lasted approx 30 minutes befre resolution. She admits he is currently more confused that his baseline and believes it is attributed to his history of dementia. Denies subjective fevers, chills, shortness of breath, palpitations, abdominal pain, nausea, vomiting. ER course was notable for: (1) CT head negative for acute pathology (2) EKG reveals normal sinus rhythm at 91BPM, initial troponin 0.02 (3) Recent Travel: Denies PAST MEDICAL HISTORY: hypertension, hyperlipidemia, diabetes mellitus, GERD, prostate cancer PAST SURGICAL HISTORY: cholecystectomy, prostate surgery Family History: noncontributory; patient denies known cardiac, or oncologic family history. Social History: Lives with . Ambulates with cane at baseline. 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 Alcohol: Denies alcohol consumption. Drugs: Denies illicit drug use. Allergies aspirin Allergy (Verified 11/14/19 15:55) ciprofloxacin [From Cipro] Allergy (Verified 11/14/19 15:55) ciprofloxacin HCl [From Cipro] Allergy (Verified 11/14/19 15:55) penicillin G Allergy (Verified 11/14/19 15:55) HOME MEDICATIONS: Home Medications Medication Instructions Recorded Amlodipine Besylate [Norvasc -] 10 mg PO DAILY 10/26/18 Donepezil HCl 5 mg PO BID 10/26/18 metFORMIN HCL [Metformin HCl ER] 500 mg PO DAILY 10/26/18 Atorvastatin Ca [Lipitor] 20 mg PO HS #30 tablet 08/18/19 Clopidogrel Bisulfate [Plavix -] 75 mg PO DAILY #30 tablet 08/18/19 Lisinopril [Prinivil -] 40 mg PO DAILY 08/18/19 Solifenacin Succinate 5 mg PO DAILY 08/18/19 REVIEW OF SYSTEMS As per HPI. Unable to obtain further given patient's clinical status. PHYSICAL EXAMINATION Vital Signs - 24 hr 11/14/19 15:40 Temperature 98.5 F Pulse Rate 96 H Respiratory 16 Rate Blood Pressure 153/93 O2 Sat by Pulse 98 Oximetry (%) GENERAL: The patient is awake, alert, oriented x1, in no acute distress. HEAD: Normocephalic, atraumatic. EYES: PERRL, extraocular movements intact, sclera anicteric, conjunctiva clear. ENT: Oropharynx clear, without erythema or exudates. Moist mucous membranes. NECK: Trachea midline, full range of motion. Supple without lymphadenopathy. LUNGS: Breath sounds equal, clear to auscultation bilaterally. No wheezes, no crackles. No accessory muscle use. HEART: Regular rate and rhythm. S1, S2 without murmur, rub or gallop. ABDOMEN: Soft, nondistended, nontender to light and deep palpation x4 quadrants. No rebound tenderness, no guarding. Normoactive bowel sounds x4 quadrants. No hepatosplenomegaly, no masses appreciated. EXTREMITIES: 2+ radial, dorsalis pedis pulses bilaterally. Warm, well-perfused. No lower extremity edema bilaterally. NEUROLOGICAL: Cranial nerves II through XII grossly intact. Normal speech. No gross focal deficits. NIHSS 0. PSYCH: Normal mood, normal affect upon my encounter. SKIN: Warm, dry. Right upper abdominal quadrant horizontal scar, vertical scar midline lower abdomen well healed, intact. Venous statis dermatitis changes bilateral lower extremities. Laboratory Results - last 24 hr 11/14/19 11/14/19 11/14/19 15:55 18:15 18:15 WBC 7.1 RBC 4.97 Hgb 14.8 Hct 46.0 MCV 92.4 MCH 29.8 MCHC 32.2 RDW 13.4 Plt Count 140 D MPV 11.5 H Absolute Neuts (auto) 5.4 Neutrophils % 76.3 D Lymphocytes % 16.7 D Monocytes % 5.8 Eosinophils % 0.7 Basophils % 0.5 Nucleated RBC % 0 Sodium 141 Potassium 4.6 Chloride 104 Carbon Dioxide 32 Anion Gap 6 L BUN 10.0 Creatinine 0.9 Est GFR (CKD-EPI)AfAm 93.82 Est GFR (CKD-EPI)NonAf 80.95 POC Glucometer 182 Random Glucose 162 H Calcium 10.2 H Phosphorus 2.6 Magnesium 2.4 Total Bilirubin 0.9 AST 32 ALT 45 Alkaline Phosphatase 89 Creatine Kinase 88 Troponin I < 0.02 Total Protein 8.3 H Albumin 4.2 Blood Type Antibody Screen 11/14/19 18:15 WBC RBC Hgb Hct MCV MCH MCHC RDW Plt Count MPV Absolute Neuts (auto) Neutrophils % Lymphocytes % Monocytes % Eosinophils % Basophils % Nucleated RBC % Sodium Potassium Chloride Carbon Dioxide Anion Gap BUN Creatinine Est GFR (CKD-EPI)AfAm Est GFR (CKD-EPI)NonAf POC Glucometer Random Glucose Calcium Phosphorus Magnesium Total Bilirubin AST ALT Alkaline Phosphatase Creatine Kinase Troponin I Total Protein Albumin Blood Type A POSITIVE Antibody Screen Negative ASSESSMENT/PLAN: Patient is a 79 year old male with history of dementia, hypertension, hyperlipidemia, diabetes mellitus (non- insulin dependent), TIA, GERD, prostate cancer, presents with complaint of chest pressure Atypical chest pain -EKG reveals normal sinus rhythm at 91BPM without ischemic changes -Initial troponin 0.02. Will trend. -Cardiac telemetry monitoring -Cardiac transthoracic ECHO -Continue Plavix 75mg PO daily History of TIA -Continue home Plavix, Atorvastatin. -Patient had neurologic work up three months ago Hypertension -Reinstate home Norvasc, Lisinopril Hyperlipidemia -Reinstate home Atorvastatin Diabetes mellitus -Insulin sliding scale ACHS -Fingerstick blood glucose ACHS Dementia -Continue home Donepezil FEN -No IV fluids indicated -Follow BMP -Sodium, diabetic modified diet Prophylaxis -SCDs bilteral lower extremities Disposition -Telemetry observation Visit type - Emergency Visit Emergency Visit: Yes ED Registration Date: 11/14/19 Care time: The patient presented to the Emergency Department on the above date and was hospitalized for further evaluation of their emergent condition. - New Patient This patient is new to me today: Yes Date on this admission: 11/15/19 - Critical Care Critical Care patient: No ATTENDING PHYSICIAN STATEMENT I saw and evaluated the patient. I reviewed the resident's note and discussed the case with the resident. I agree with the resident's findings and plan as documented. SUBJECTIVE: OBJECTIVE: ASSESSMENT AND PLAN:
--- NOTE | 2019-11-15 01:19 | PN ---
Teaching Attending Note Name of Resident: Christopher Ayers ATTENDING PHYSICIAN STATEMENT I saw and evaluated the patient. I reviewed the resident's note and discussed the case with the resident. I agree with the resident's findings and plan as documented. SUBJECTIVE: He reported some vague chest pain which prompted him to come to the hospital with his as well as some prior altered mental status which is improved by now. No longer experiencing chest pain. Mentions some vague perioral paresthesias which are now with no longer present. Patient and are both poor historians and unable to provide specific details about his symptoms. OBJECTIVE: Last Vital Signs Temp Pulse Resp BP Pulse Ox 98.6 F 90 20 156/77 97 11/15/19 00:20 11/15/19 00:20 11/15/19 00:20 11/15/19 00:20 11/15/19 00:20 On physical exam patient was a elderly, frail man not in any acute distress. He was oriented to person, place, time. He was following commands. Head was atraumatic, dry oral mucosa. Neck was supple, no JVD. CVS1, S2, regular rate and rhythm. Chest was clear to auscultation bilaterally. Abdomen soft, nontender. No rashes noted on skin. Neuro exam was normal, no focal neurological deficits were noted. Abnormal Lab Results 11/14/19 11/14/19 18:15 18:15 MPV 11.5 H Anion Gap 6 L Random Glucose 162 H Calcium 10.2 H Total Protein 8.[address] of head reviewedno CT evidence of intracranial pathology. Moderate periventricular and subcortical chronic microvascular ischemic changes noted. Chronic left maxillary sinusitis. No obvious mass lesion is seen on noncontrast imaging. Mild to moderate ventricular dilatation likely secondary to atrophy. Chest x-ray reviewed ASSESSMENT AND PLAN: 79-year-old male brought in with altered mental statusnow improved. As per he is back to his baseline. Patient was complaining of some chest pain and will place in observation to rule out ACS.EKG did not show any ischemic changes. Some vague charlene-aural numbness which is now resolved. Possible TIA. Patient was able to move tongue on exam without any issues. Head CT did not show any acute insults. Telemetry observation Trend troponins Transthoracic echo Nitroglycerin as needed if chest pain #Uncontrolled hypertension Restarted on lisinopril, amlodipine #Underlying dementia Continue with donepezil #Diabetes mellitus Statin NovoLog sliding scale #DVT prophylaxisheparin subcutaneously
[2019-11-15 06:46] LABS: HEMATOCRIT 43.8 % (35.4-49); HEMOGLOBIN 14.6 GM/dL (11.7-16.9); MCH 30.4 pg (25.7-33.7); MCHC 33.3 g/dl (32.0-35.9); MEAN CELL VOLUME 91.2 fl (80-96); MEAN PLT VOLUME 10.9 fl (7.5-11.1); PLATELET COUNT 131 K/MM3 (134-434); RDW 12.7 % (11.9-15.9); WHITE BLOOD COUNT 5.8 K/mm3 (4.0-10.0)
[2019-11-15 07:17] LABS: ANION GAP 4 MMOL/L (8-16); BLOOD UREA NITROGEN 7.4 mg/dL (7-18); CALCIUM 9.1 mg/dL (8.5-10.1); CHLORIDE 106 mmol/L (98-107); CO2 30 mmol/L (21-32); CREATININE 0.8 mg/dL (0.55-1.3); GLUCOSE,RANDOM 132 mg/dL (74-106); PHOSPHOROUS 3.3 mg/dL (2.5-4.9); SODIUM 140 mmol/L (136-145)
[2019-11-15] MEDS: INSULIN SLIDING SCALE (NOVOLOG) 1 VIAL SQ SCH ×2 (08:32→11:58)
--- NOTE | 2019-11-15 09:41 | EKG ---
Test Reason : Blood Pressure : / mmHG Vent. Rate : 091 BPM Atrial Rate : 091 BPM P-R Int : 126 ms QRS Dur : 086 ms QT Int : 338 ms P-R-T Axes : 047 -03 056 degrees QTc Int : 415 ms POOR DATA QUALITY, INTERPRETATION MAY BE ADVERSELY AFFECTED NORMAL SINUS RHYTHM POSSIBLE LEFT ATRIAL ENLARGEMENT LEFT VENTRICULAR HYPERTROPHY NONSPECIFIC ST AND T WAVE ABNORMALITY ABNORMAL ECG WHEN COMPARED WITH ECG OF 19-OCT-2019 12:11, NO SIGNIFICANT CHANGE WAS FOUND Confirmed by Surinder Park MD ([id number]) on 11/15/2019 9:40:48 AM Referred By: Confirmed By:Surinder Park MD
[2019-11-15] MEDS ORDERED: LISINOPRIL 20 MG TABLET (FP) PO SCH (10:00)
[2019-11-15] MEDS ORDERED: amLODIPine BESYLATE 10 MG TABLET (FP) PO SCH (10:00)
[2019-11-15] MEDS ORDERED: CLOPIDOGREL BISULFATE 75 MG TABLET (FP) PO SCH (10:00)
[2019-11-15] MEDS ORDERED: PATIENT'S OWN MEDICATION (NON-FORMULARY) (Lisinopril [Prinivil -] 40 MG) PO SCH (10:00)
[2019-11-15] MEDS ORDERED: DONEPEZIL HCL 5 MG TABLET (FP) PO SCH (10:00)
--- NOTE | 2019-11-15 10:56 | ECHO ---
Name: KRANTHI BYRNESKEITH Exam:Adult Echocardiogram Study Date: 11/15/2019 09:55 AM Age: 79 yrs Reason For Study: Evaluate Cardiac Function Height: 66 in Weight: 145 lb BSA: 1.7 m2 MMode/2D Measurements & Calculations IVSd: 1.4 cm Ao root diam: 3.2 cm LVIDd: 3.9 cm LA dimension: 3.9 cm LVIDs: 2.2 cm LVPWd: 1.7 cm LVPWs: 1.6 cm EDV(Teich): 64.8 ml ESV(Teich): 16.3 ml LVOT diam: 1.9 cm LVLd ap4: 6.5 cm EDV(MOD-sp4): 72.1 ml LVLs ap4: 5.7 cm ESV(MOD-sp4): 27.8 ml SV(MOD-sp4): 44.3 ml LAV (MOD-bp): 66.1 ml RV S Delta: 24.2 cm/sec Doppler Measurements & Calculations MV E max delta: 42.2 cm/sec Ao V2 max: 168.7 cm/sec MV A max delta: 77.6 cm/sec Ao max P.4 mmHg MV E/A: 0.54 BAILEY(V,D): 2.1 cm2 MV dec time: 0.10 sec LV V1 max P.3 mmHg PA V2 max: 144.6 cm/sec LV V1 max: 125.1 cm/sec PA max P.4 mmHg Med Peak E' Delta: 6.0 cm/sec Med E/e': 7.1 Lat Peak E' Delta: 6.4 cm/sec Lat E/e': 6.6 Procedure A complete two-dimensional transthoracic echocardiogram was performed (2D, M-mode, Doppler and color flow Doppler). The patient was in a tachycardic rhythm during the exam. Left Ventricle There is moderate concentric left ventricular hypertrophy. The left ventricular ejection fraction is normal. Ejection Fraction = 65%. E/A reversal consistent with but not diagnostic of poor LV compliance. The l eft ventricular wall motion is normal. Mitral Valve The mitral valve is normal in structure and function. There is no mitral regurgitation noted. Tricuspid Valve The tricuspid valve is normal in structure and function. There is trace tricuspid regurgitation. Ther e was insufficient TR detected to calculate RV systolic pressure. Aortic Valve There is trivial aortic valve thickening. Pulmonic Valve The pulmonic valve is normal in structure and function. Great Vessels The aortic root is normal size. Pericardium/Pleura There is no pericardial effusion. There is no pleural effusion. Interpretation Summary This degree of valvular regurgitation is within normal limits. The patient was in a tachycardic rhyth m during the exam. There is moderate concentric left ventricular hypertrophy. The left ventricular ejection fraction is normal. Ejection Fraction = 65%. MD Surinder Park 11/15/2019 10:56 AM
--- NOTE | 2019-11-15 11:40 | PN ---
Progress Note (short form) - Note Progress Note: admitted for chest pain , and facial numbness pt examined in ER no complaints now No chest pain He had a previous ER visit for chest pain and was advised to see Cardiology as outpt-- appears he did not do so Vital Signs - 24 hr 11/14/19 11/15/19 11/15/19 15:40 00:20 07:51 Temperature 98.5 F 98.6 F Pulse Rate 96 H Pulse Rate [ 90 Left] Pulse Rate [ 90 Right Radial] Respiratory 16 20 18 Rate Blood Pressure 153/93 Blood Pressure 156/77 [Left Arm] Blood Pressure 164/74 [Right Arm] O2 Sat by Pulse 98 97 97 Oximetry (%) Current Medications Generic Name Dose Route Start Last Admin Trade Name Freq PRN Reason Stop Dose Admin Amlodipine Besylate 10 mg 11/15/19 10:00 Norvasc - PO DAILY ADRIEL Atorvastatin Calcium 20 mg 11/15/19 22:00 Lipitor - PO HS ADRIEL Clopidogrel Bisulfate 75 mg 11/15/19 10:00 Plavix - PO DAILY [facility] Donepezil HCl 5 mg 11/15/19 10:00 Aricept - PO BID [facility] Insulin Aspart 1 vial 11/15/19 07:00 11/15/19 08:32 Novolog Vial Sliding Scale - SQ Not Given ACHS [facility] Protocol Lisinopril 40 mg 11/15/19 10:00 Prinivil PO DAILY [facility] Laboratory Results - last 24 hr 11/14/19 11/14/19 11/14/19 15:55 18:15 18:15 WBC 7.1 RBC 4.97 Hgb 14.8 Hct 46.0 MCV 92.4 MCH 29.8 MCHC 32.2 RDW 13.4 Plt Count 140 D MPV 11.5 H Absolute Neuts (auto) 5.4 Neutrophils % 76.3 D Lymphocytes % 16.7 D Monocytes % 5.8 Eosinophils % 0.7 Basophils % 0.5 Nucleated RBC % 0 Sodium 141 Potassium 4.6 Chloride 104 Carbon Dioxide 32 Anion Gap 6 L BUN 10.0 Creatinine 0.9 Est GFR (CKD-EPI)AfAm 93.82 Est GFR (CKD-EPI)NonAf 80.95 POC Glucometer 182 Random Glucose 162 H Calcium 10.2 H Phosphorus 2.6 Magnesium 2.4 Total Bilirubin 0.9 AST 32 ALT 45 Alkaline Phosphatase 89 Creatine Kinase 88 Troponin I < 0.02 Total Protein 8.3 H Albumin 4.2 TSH Blood Type Antibody Screen 11/14/19 11/14/19 11/14/19 18:15 23:58 23:59 WBC RBC Hgb Hct MCV MCH MCHC RDW Plt Count MPV Absolute Neuts (auto) Neutrophils % Lymphocytes % Monocytes % Eosinophils % Basophils % Nucleated RBC % Sodium Potassium Chloride Carbon Dioxide Anion Gap BUN Creatinine Est GFR (CKD-EPI)AfAm Est GFR (CKD-EPI)NonAf POC Glucometer 146 Random Glucose Calcium Phosphorus Magnesium Total Bilirubin AST ALT Alkaline Phosphatase Creatine Kinase Troponin I < 0.02 Total Protein Albumin TSH Blood Type A POSITIVE Antibody Screen Negative 11/15/19 11/15/19 11/15/19 06:15 06:15 08:23 WBC 5.8 RBC 4.80 Hgb 14.6 Hct 43.8 MCV 91.2 MCH 30.4 MCHC 33.3 RDW 12.7 Plt Count 131 L MPV 10.9 Absolute Neuts (auto) Neutrophils % Lymphocytes % Monocytes % Eosinophils % Basophils % Nucleated RBC % Sodium 140 Potassium 4.0 Chloride 106 Carbon Dioxide 30 Anion Gap 4 L BUN 7.4 Creatinine 0.8 Est GFR (CKD-EPI)AfAm 98.47 Est GFR (CKD-EPI)NonAf 84.96 POC Glucometer 124 Random Glucose 132 H Calcium 9.1 Phosphorus 3.3 Magnesium 2.0 Total Bilirubin AST ALT Alkaline Phosphatase Creatine Kinase 76 Troponin I < 0.02 Total Protein Albumin TSH 1.80 D Blood Type Antibody Screen S1 S2 RRR Lungs clear Abd- soft, NT no edema Echo-- normal EF A/P Chest pain -- cardiac enzymes negative -- cardiology eval -- check carotid Doppler -- CT head negative --check lipid panel Problem List - Problems (1) Chest pain Code(s): R07.9 - CHEST PAIN, UNSPECIFIED Qualifiers: Chest pain type: unspecified Qualified Code(s): R07.9 - Chest pain, unspecified (2) HTN (hypertension) Code(s): I10 - ESSENTIAL (PRIMARY) HYPERTENSION
[2019-11-15 12:49] LABS: CHOLESTEROL 193 mg/dL (50-200); HDL CHOLESTEROL 69 mg/dL (40-60); LDL CHOLESTEROL (ONLY SJRH) 107 mg/dL (5-100); TRIGLYCERIDES 114 mg/dL (0-150)
[2019-11-15] MEDS ORDERED: LORazepam 2 MG/ML SDV VIAL IVPUSH PRN (13:11)
--- NOTE | 2019-11-15 13:16 | DS ---
Physical Examination Vital Signs: Vital Signs Temperature 98.3 F 11/15/19 12:01 Pulse Rate 93 H 11/15/19 11:58 Respiratory Rate 18 11/15/19 11:58 Blood Pressure 155/88 11/15/19 11:58 O2 Sat by Pulse Oximetry (%) 98 11/15/19 11:58 Labs: CBC, BMP 11/15/19 06:15 11/15/19 06:15 Discharge Summary Problems reviewed: Yes Reason For Visit: ALT MENTAL STATUS,CHEST PAIN Current Active Problems Altered mental status (Acute) Chest pain (Acute) Hospital Course: see todays note he is refusing the monitor He has three negative enzymes and echo normal CT head negative spoke with Cardiology DC home and follow up as outpt Condition: Stable - Instructions Referrals: Ihsan Naqvi MD [Staff Physician] - Disposition: HOME - Home Medications Comprehensive Discharge Medication List: Ambulatory Orders Amlodipine Besylate [Norvasc -] 10 mg PO DAILY 10/26/18 Donepezil HCl 5 mg PO HS 10/26/18 metFORMIN HCL [Metformin HCl ER] 500 mg PO BID 10/26/18 Atorvastatin Ca [Lipitor] 20 mg PO HS #30 tablet 08/18/19 Clopidogrel Bisulfate [Plavix -] 75 mg PO DAILY #30 tablet 08/18/19 Lisinopril [Prinivil -] 40 mg PO DAILY 08/18/19 Desmopressin Acetate [Ddavp] 0.2 mg PO BID 11/15/19 Metoprolol Succinate [Toprol Xl] 100 mg PO DAILY 11/15/19 Multivitamin [One-Daily Multi-Vitamin] 1 each PO DAILY 11/15/19 Oxybutynin Chloride [Ditropan Xl] 10 mg PO DAILY 11/15/19 hydrALAZINE HCL [Apresoline -] 2 mg PO BID 11/15/19
--- NOTE | 2019-11-15 13:17 | CON.CARD ---
Consult Consult Specialty:: Cardiology Referred by:: Dr. Ayon Reason for Consultation:: chest pain - History of Present Illness Chief Complaint: Perioral numbness and sore throat History of Present Illness: 79M with Medical Hx: - HTN - DM - HLD - Prostate CA - Alzheimers Dementia - Possible TIA in Jul 2019 on Plavix ROS: History is limited by baseline dementia/confusion as per PMD. History was obtained in [place]. He denies exertional CP but does have a chronic sensation of "throat irritation" which happens with and without exertion. Chronic exertional fatigue. Enzymes negative x 3 Echo done, unremarkable. Head CT no acute changes ECG: NSR 91bpm, LVH Currently CP, walking the halls wanting to go home with leads off and coat on. 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 Cardio/Vascular: Yes: HTN Gastrointestinal: Yes: Ascites, GERD Hepatobiliary: Yes: Hepatitis C Renal/: Yes: Cancer, Hematuria, UTI - Alcohol/Substance Use Hx Alcohol Use: No History of Substance Use: reports: None - Smoking History Smoking history: Never smoked Have you smoked in the past 12 months: No - Social History ADL: Family Assistance History of Recent Travel: No Home Medications - Allergies Allergies/Adverse Reactions: Allergies Allergy/AdvReac Type Severity Reaction Status Date / Time aspirin Allergy Verified 11/14/19 15:55 ciprofloxacin [From Cipro] Allergy Verified 11/14/19 15:55 ciprofloxacin HCl Allergy Verified 11/14/19 15:55 [From Cipro] penicillin G Allergy Verified 11/14/19 15:55 - Home Medications Home Medications: Ambulatory Orders Amlodipine Besylate [Norvasc -] 10 mg PO DAILY 10/26/18 Donepezil HCl 5 mg PO HS 10/26/18 metFORMIN HCL [Metformin HCl ER] 500 mg PO BID 10/26/18 Atorvastatin Ca [Lipitor] 20 mg PO HS #30 tablet 08/18/19 Clopidogrel Bisulfate [Plavix -] 75 mg PO DAILY #30 tablet 08/18/19 Lisinopril [Prinivil -] 40 mg PO DAILY 08/18/19 Desmopressin Acetate [Ddavp] 0.2 mg PO BID 11/15/19 Metoprolol Succinate [Toprol Xl] 100 mg PO DAILY 11/15/19 Multivitamin [One-Daily Multi-Vitamin] 1 each PO DAILY 11/15/19 Oxybutynin Chloride [Ditropan Xl] 10 mg PO DAILY 11/15/19 hydrALAZINE HCL [Apresoline -] 2 mg PO BID 11/15/19 Family Medical History Family History: Unremarkable (not pertinent to this presentation) Review of Systems Findings/Remarks: see HPI, ER and PMD H/P - Review of Systems Constitutional: reports: No Symptoms Eyes: reports: No Symptoms HENT: reports: No Symptoms Neck: reports: No Symptoms Cardiovascular: reports: No Symptoms Respiratory: reports: Exercise Intolerance Gastrointestinal: reports: No Symptoms Genitourinary: reports: No Symptoms Musculoskeletal: reports: No Symptoms Integumentary: reports: No Symptoms Neurological: reports: No Symptoms Endocrine: reports: No Symptoms Hematology/Lymphatic: reports: No Symptoms Psychiatric: reports: No Symptoms - Risk Factors Known Risk Factors: Yes: Hypertension, Other (Prior TIA) Vital Signs: Vital Signs Temperature 98.3 F 11/15/19 12:01 Pulse Rate 93 H 11/15/19 11:58 Respiratory Rate 18 11/15/19 11:58 Blood Pressure 155/88 11/15/19 11:58 O2 Sat by Pulse Oximetry (%) 98 11/15/19 11:58 Constitutional: Yes: No Distress, Calm Eyes: Yes: Conjunctiva Clear, EOM Intact Respiratory: Yes: CTA Bilaterally Gastrointestinal: Yes: Soft Cardiovascular: Yes: Regular Rate and Rhythm JVD: No Carotid Bruit: No PMI: Non-Displaced Edema: No Peripheral Pulses WNL: Yes Neurological: Yes: Confusion ...Motor Strength: WNL - Other Data Labs, Other Data: CBC, BMP 11/15/19 06:15 11/15/19 06:15 Troponin, BNP 11/14/19 11/14/19 11/15/19 18:15 23:58 06:15 Troponin I < 0.02 < 0.02 < 0.02 Troponin, BNP 11/14/19 11/14/19 11/15/19 18:15 23:58 06:15 Troponin I < 0.02 < 0.02 < 0.02 Ejection Fraction %: LVEF > or = 40 % Imaging - Results Cat Scan: Report Reviewed EKG: Image Reviewed, Other (NSR, 91bpm, LVH) Assessment/Plan IMP: Prior TIA Chronic HTN, hypertensive heart dz Atypical CP with stable ECG, normal Echo and negative TnI x 3 REC: Although the history is limited by dementia, there is no indication of an acute coronary syndrome: ECG is stable, serial enzymes are negative and echo shows normal LVEF. He has had these type of atypical symptoms for at least one month. At this time, patient can be discharged with close outpatient f/u with Dr. Harp. Patient was instructed to f/u with Dr. Harp within 1 week for oupt stress test and to return to ER if symptoms worsen or recur.
[2019-11-15 13:23] VITALS: BP 156/80; PULSE 98; TEMP 98
[2019-11-15 13:35] VITALS: BMI 25.7
[2019-11-15] MEDS ORDERED: ATORVASTATIN CA 20 MG TABLET (FP) PO SCH (22:00)
== END 2019-11-15 13:54 | disposition home or self-care (01) ==
LOC: JER 15:38 → JERBED 22:22 → UNDOADMOB 22:22 → INTOOBSV 22:22 → JERBED 23:27 → J4W 11-15 12:44
PROVIDERS: ADMIT Internal Medicine; ATTEND Internal Medicine
DX: R07.89 Other chest pain (principal); R41.82 Altered mental status, unspecified; I11.9 Hypertensive heart disease without heart failure; E78.5 Hyperlipidemia, unspecified; E11.9 Type 2 diabetes mellitus without complications; G30.9 Alzheimer's disease, unspecified; F02.80 Dementia in other diseases classified elsewhere, unspecified severity, without behavioral disturbance, psychotic disturbance, mood disturbance, and anxiety; K21.9 Gastro-esophageal reflux disease without esophagitis; Z85.46 Personal history of malignant neoplasm of prostate; Z86.73 Personal history of transient ischemic attack (TIA), and cerebral infarction without residual deficits; Z79.84 Long term (current) use of oral hypoglycemic drugs; Z79.02 Long term (current) use of antithrombotics/antiplatelets; Z88.0 Allergy status to penicillin; Z88.6 Allergy status to analgesic agent
CPT/HCPCS: 36415; 70450-TC; 71046-TC-FY; 80048; 80053; 80061; 82550; 82962; 83721; 83735; 84100; 84443; 84484; 85025; 85027; 86850; 86900; 86901; 93005; 93010; 93306-TC; 99285-25; G0378